=== PATIENT | male | born 1965 | race African-American/Black ===

== ENCOUNTER 2017-06-29 08:23 | Emergency (ER) | payer MEDICARE, OTHER ==
[~2017-06-29] VITALS: Ht 180.3 cm; Wt 79.4 kg
--- NOTE | 2017-06-29 08:35 | NUR ---
[id number]/ N/V STARTED 1HR AGO. PATIENT IS A/OX 4. BREATHING EVEN AND UNLABORED. NO SOB. VITALS STABLE. SAFETY AND COMFORT MEASURES IN PLACE. AWAITING MD ORDERS.
[2017-06-29] MEDS ORDERED: PANTOPRAZOLE 40 MG VIAL IV ONE (09:00)
[2017-06-29] MEDS ORDERED: MORPHINE SULFATE INJ 2 MG/ML DISP.SYRIN IV ONE (09:00)
[2017-06-29] MEDS ORDERED: IV NS 0.9% 1,000 ML BAG IV ONE (09:00)
[2017-06-29] MEDS ORDERED: ONDANSETRON HCL/PF 4 MG/2 ML VIAL IVP ONE (09:00)
[2017-06-29] MEDS ORDERED: PANTOPRAZOLE 40 MG VIAL ONE (09:05)
[2017-06-29] MEDS ORDERED: ONDANSETRON HCL/PF 4 MG/2 ML VIAL ONE (09:05)
--- NOTE | 2017-06-29 09:10 | NUR ---
NEW IV STARTED ON LAC, 18 G. BLOOD DRAWN AND SENT TO LAB.
[2017-06-29] MEDS ORDERED: HYDROMORPHONE INJ 0.5 MG/0.5 ML SYRINGE ONE (09:20)
--- NOTE | 2017-06-29 09:24 | NUR ---
PATIENT MEDICATED PER MD ORDERS.
[2017-06-29 09:25] LABS: EOSINOPHILS % (AUTO) 0.2 % (0.0-6.0); HEMATOCRIT 48 % (39-51); HEMOGLOBIN 16.4 g/dL (13.5-17.5); LYMPHOCYTES # (AUTO) 1.3 /CMM (0.8-4.8); LYMPHOCYTES % (AUTO) 16.8 % (20.0-44.0); MEAN CORPUSCULAR HEMOGLOBIN 33 PG (26.0-33.0); MEAN CORPUSCULAR HGB CONC 34 g/dl (31.0-36.0); MEAN CORPUSCULAR VOLUME 96 fL (80-96); MONOCYTES # (AUTO) 0.1 /CMM (0.1-1.30); MONOCYTES % (AUTO) 1.5 % (2.0-12.0); NEUTROPHILS # (AUTO) 6.2 /CMM (1.8-8.9); NEUTROPHILS % (AUTO) 81.5 % (43.0-81.0); PLATELET COUNT (AUTO) 220 /CMM (150-450); RDW COEFFICIENT OF VARIATION 13.4 (11.5-15.0); RED BLOOD CELL COUNT(AUTO) 4.95 MIL/uL (4.5-6.0); WHITE BLOOD COUNT (AUTO) 7.7 K/uL (4.3-11.0)
[2017-06-29] MEDS ORDERED: HYDROMORPHONE 1 MG/1 ML DISP.SYRIN IV ONE (09:30)
[2017-06-29 09:36] LABS: INR 0.96 (0.87-1.13)
[2017-06-29 09:45] LABS: BILIRUBIN,DIRECT 0.1 mg/dL (0.0-0.2); BILIRUBIN,TOTAL 0.5 mg/dL (0.2-1.0); CARBON DIOXIDE 29 mmol/L (21-32); CHLORIDE 109 mmol/L (98-107); CREATININE 1.2 mg/dL (0.6-1.3); GLUCOSE 115 mg/dL (74-106); POTASSIUM 3.6 mmol/L (3.5-5.1); SODIUM SERUM 146 mmol/L (136-145); UREA NITROGEN, BLOOD 13 mg/dL (7-18)
[2017-06-29 09:46] LABS: ALANINE AMINOTRANSFERASE 43 U/L (12-78); ALBUMIN 4.1 g/dL (3.4-5.0); ALKALINE PHOSPHATASE 125 U/L (46-116); ASPARTATE AMINOTRANSFERASE 28 U/L (15-37); LIPASE 162 U/L (73-393); TOTAL PROTEIN, SERUM 8.1 g/dL (6.4-8.2)
[2017-06-29 09:53] LABS: CALCIUM, SERUM 9.4 mg/dL (8.5-10.1)
[2017-06-29] MEDS ORDERED: IOHEXOL-300 100 ML VIAL IV ONE (09:53)
[2017-06-29] MEDS ORDERED: CT SWABBABLE VALVE TRANS SET 1 EA INFUS.SET MC ONE (09:53)
[2017-06-29] MEDS ORDERED: IV NS 0.9% 250 ML IV ONE (09:53)
--- NOTE | 2017-06-29 11:15 | NUR ---
US TECH AT BEDSIDE.
--- NOTE | 2017-06-29 12:50 | NUR ---
KISHOR SALCEDO CALLED FOR ASSISTANCE WITH TRANSPORTATION AND RESIDENTIAL
--- NOTE | 2017-06-29 13:12 | NUR ---
IV removed. Catheter intact and site benign. Pressure and 4x4 applied to site. No bleeding noted.
[2017-06-29 13:13] VITALS: BP 126/78
--- NOTE | 2017-06-29 13:13 | NUR ---
Patient discharged to home in stable condition. Written and verbal after care instructions given. Patient verbalizes understanding of instruction.
== END 2017-06-29 13:14 | disposition home or self-care (01) ==
LOC: ER 08:25
DX: K29.70 Gastritis, unspecified, without bleeding (principal); E86.0 Dehydration; I10 Essential (primary) hypertension; J44.9 Chronic obstructive pulmonary disease, unspecified; F20.0 Paranoid schizophrenia
CPT/HCPCS: 36415; 76705-TC; 80048-TC; 80076-TC; 83605-TC; 83690-TC; 85025-TC; 85730-TC; A4606; C9113; G0480; J2405; J7030; J7050; Q9967; Z7610

== ENCOUNTER 2019-09-08 11:56 | Emergency (ER) | payer MEDICARE, OTHER ==
[~2019-09-08] VITALS: Ht 175.3 cm; Wt 90.7 kg
[2019-09-08 12:47] LABS: BASOPHILS % (AUTO) 0.7 % (0.0-2.0); EOSINOPHILS % (AUTO) 1.6 % (0.0-6.0); HEMATOCRIT 44 % (39-51); HEMOGLOBIN 15.2 g/dL (13.5-17.5); LYMPHOCYTES # (AUTO) 1.7 /CMM (0.8-4.8); LYMPHOCYTES % (AUTO) 38.3 % (20.0-44.0); MEAN CORPUSCULAR HGB CONC 35 g/dl (31.0-36.0); MEAN CORPUSCULAR VOLUME 97 fL (80-96); MONOCYTES # (AUTO) 0.3 /CMM (0.1-1.30); MONOCYTES % (AUTO) 6.5 % (2.0-12.0); NEUTROPHILS # (AUTO) 2.4 /CMM (1.8-8.9); NEUTROPHILS % (AUTO) 52.9 % (43.0-81.0); PLATELET COUNT (AUTO) 194 /CMM (150-450); RED BLOOD CELL COUNT(AUTO) 4.53 MIL/uL (4.5-6.0); WHITE BLOOD COUNT (AUTO) 4.5 K/uL (4.3-11.0)
[2019-09-08 12:53] LABS: BILIRUBIN,URINE Negative (NEGATIVE); BLOOD, URINE Trace-intact Ery/uL (NEGATIVE); COLOR,URINE Yellow (YELLOW); KETONES,URINE Negative (NEGATIVE); LEUKOCYTE ESTERASE ,URINE Negative (NEGATIVE); NITRITE, URINE Negative (NEGATIVE); PROTEIN,URINE 100 mg/dl (NEGATIVE); UGLUCOSE Negative (NEGATIVE)
[2019-09-08 12:55] LABS: APPEARANCE,URINE SLIGHTLY HAZY (CLEAR)
[2019-09-08 13:00] LABS: CARBON DIOXIDE 27 mmol/L (21-32); CHLORIDE 104 mmol/L (98-107); GLUCOSE 97 mg/dL (74-106); POTASSIUM 3.5 mmol/L (3.5-5.1); SODIUM SERUM 140 mmol/L (136-145); UREA NITROGEN, BLOOD 13 mg/dL (7-18)
[2019-09-08 13:01] LABS: BACTERIA,URINE None seen /HPF (None Seen); SQUAMOUS EPITHELIAL CELL,UR Few /HPF (None Seen); WBC,URINE 0-2 /HPF (0-3)
[2019-09-08 13:13] LABS: ALANINE AMINOTRANSFERASE 40 U/L (12-78); ALBUMIN 3.9 g/dL (3.4-5.0); ALCOHOL, BLOOD < 3 mg/dL (0-0); ALKALINE PHOSPHATASE 127 U/L (46-116); ASPARTATE AMINOTRANSFERASE 21 U/L (15-37); BILIRUBIN,DIRECT 0.1 mg/dL (0.0-0.2); BILIRUBIN,TOTAL 0.4 mg/dL (0.2-1.0); SALICYLATE 4.2 mg/dL (2.8-20.0); TOTAL PROTEIN, SERUM 7.6 g/dL (6.4-8.2)
[2019-09-08 13:14] LABS: ACETAMINOPHEN 0 ug/ml (10-30)
--- NOTE | 2019-09-08 15:15 | NUR ---
CALLED [facility] FOR TRANSPORT TO [facility]. ETA 15 MINUTES.
--- NOTE | 2019-09-08 16:47 | NUR ---
RE[facility] GIV[facility]
[2019-09-08 16:49] VITALS: BP 151/82
== END 2019-09-08 16:51 ==
LOC: ER 12:06
DX: R45.1 Restlessness and agitation (principal); F20.9 Schizophrenia, unspecified; I10 Essential (primary) hypertension; J44.9 Chronic obstructive pulmonary disease, unspecified; F60.0 Paranoid personality disorder
CPT/HCPCS: 36415; 80048; 80076; 80305; 80307; 80329; 81001; 85025; 99285; G0480; 81000-TC

== ENCOUNTER 2020-07-05 16:38 | Emergency (ER) | payer MEDICARE, OTHER ==
[~2020-07-05] VITALS: Ht 175.3 cm; Wt 90.7 kg
[2020-07-05 18:03] LABS: BASOPHILS # (AUTO) 0.1 /CMM (0.0-0.2); BASOPHILS % (AUTO) 1.1 % (0.0-2.0); EOSINOPHILS % (AUTO) 0.8 % (0.0-6.0); HEMATOCRIT 44 % (39-51); HEMOGLOBIN 15.6 g/dL (13.5-17.5); LYMPHOCYTES # (AUTO) 2.1 /CMM (0.8-4.8); LYMPHOCYTES % (AUTO) 32.8 % (20.0-44.0); MEAN CORPUSCULAR HGB CONC 35 g/dl (31.0-36.0); MEAN CORPUSCULAR VOLUME 95 fL (80-96); MONOCYTES # (AUTO) 0.4 /CMM (0.1-1.30); MONOCYTES % (AUTO) 6.2 % (2.0-12.0); NEUTROPHILS # (AUTO) 3.7 /CMM (1.8-8.9); NEUTROPHILS % (AUTO) 59.1 % (43.0-81.0); PLATELET COUNT (AUTO) 193 /CMM (150-450); RED BLOOD CELL COUNT(AUTO) 4.68 MIL/uL (4.5-6.0); WHITE BLOOD COUNT (AUTO) 6.3 K/uL (4.3-11.0)
[2020-07-05 18:16] LABS: ACETAMINOPHEN < 10 ug/ml (10-30); ALANINE AMINOTRANSFERASE 63 U/L (12-78); ALBUMIN 4.3 g/dL (3.4-5.0); ALCOHOL, BLOOD < 3 mg/dL (0-0); ALKALINE PHOSPHATASE 105 U/L (46-116); ASPARTATE AMINOTRANSFERASE 31 U/L (15-37); BILIRUBIN,DIRECT 0.1 mg/dL (0.0-0.2); BILIRUBIN,TOTAL 0.4 mg/dL (0.2-1.0); CALCIUM, SERUM 9.8 mg/dL (8.5-10.1); CARBON DIOXIDE 28 mmol/L (21-32); CHLORIDE 103 mmol/L (98-107); CREATININE 1.3 mg/dL (0.6-1.3); GLUCOSE 133 mg/dL (74-106); POTASSIUM 3.7 mmol/L (3.5-5.1); SODIUM SERUM 140 mmol/L (136-145); TOTAL PROTEIN, SERUM 8.2 g/dL (6.4-8.2); UREA NITROGEN, BLOOD 10 mg/dL (7-18)
--- NOTE | 2020-07-05 19:13 | NUR ---
TOOK OVER PT CARE. PT AAOX4. AMBULATORY WITH STEADY GAIT. PT REPORTS HEARING VOICES TELLING HIM TO JUMP IN FRONT OF TRAFFIC AND REQUESTING TO BE TRANSFERED TO [facility]. NO ACUTE DISTRESS NOTED. URINE COLLECTED, SENT TO LAB. COVID SWABBED, SENT TO LAB.
[2020-07-05 19:26] LABS: BILIRUBIN,URINE Negative (NEGATIVE); COLOR,URINE YELLOW (YELLOW); LEUKOCYTE ESTERASE ,URINE Negative (NEGATIVE); NITRITE, URINE Negative (NEGATIVE); PROTEIN,URINE Negative (NEGATIVE); UGLUCOSE Negative (NEGATIVE); UROBILINOGEN,URINE 0.2 EU/dL (0.2)
[2020-07-05 19:36] LABS: BACTERIA,URINE Rare /HPF (None Seen); MUCUS,URINE Few /LPF (None Seen); SQUAMOUS EPITHELIAL CELL,UR 0-2 /HPF (None Seen); WBC,URINE 0-2 /HPF (0-3)
--- NOTE | 2020-07-05 20:00 | NUR ---
FACESHEET AND CLINICAL FAXED TO [facility] INTAKE FOR VOLUNTARY PSYCH ADMISSION.
--- NOTE | 2020-07-05 21:56 | NUR ---
TRANSFER INFORMATION: PT ACCEPTED AT [facility] JABARI JONES ACCEPTING MD SHORE PT WILL GO TO UNIT 2 PHONE # FOR REPORT
--- NOTE | 2020-07-05 22:00 | NUR ---
REPORT CALLED TO MINH MARIE.
--- NOTE | 2020-07-05 22:32 | NUR ---
CALL THE CAR, WILL CALL BACK DAVID SIMMONS #[phone]
--- NOTE | 2020-07-06 00:09 | NUR ---
[facility] ETA 35 MINUTES
--- NOTE | 2020-07-06 01:07 | NUR ---
TRANSPORT AT BEDSIDE REPORT GIVEN TO EMT.
[2020-07-06 01:08] VITALS: BP 149/77
== END 2020-07-06 01:09 ==
LOC: ER 16:46
DX: R45.851 Suicidal ideations (principal); F20.9 Schizophrenia, unspecified; Z20.822 Contact with and (suspected) exposure to COVID-19
CPT/HCPCS: 36415; 80048-TC; 80076-TC; 81001; 85025-TC; C9803; G0480

== ENCOUNTER 2020-07-23 13:13 | Emergency (ER) | payer MEDICARE, OTHER ==
[~2020-07-23] VITALS: Ht 175.3 cm; Wt 90.7 kg
--- NOTE | 2020-07-23 13:35 | NUR ---
CAME HERE FOR HEARING VOICES TELLING HIM TO RUN INTO TRAFFIC,WANT TO BE [facility], TO ER BED 13, HOOKED TO MONITOR, CHANGED TO HOSP GOWN, SUICIDAL PRECAUTIONS APPLIED, SITTER AT BEDSIDE FOR SAFETY
--- NOTE | 2020-07-23 14:04 | NUR ---
URINE SAMPLE COLLECTED AND SENT TO LAB
--- NOTE | 2020-07-23 14:20 | NUR ---
DR PALOMO AT BEDSIDE
[2020-07-23 14:56] LABS: BASOPHILS % (AUTO) 0.8 % (0.0-2.0); HEMATOCRIT 45 % (39-51); HEMOGLOBIN 15.3 g/dL (13.5-17.5); LYMPHOCYTES # (AUTO) 2.3 /CMM (0.8-4.8); LYMPHOCYTES % (AUTO) 38.9 % (20.0-44.0); MEAN CORPUSCULAR HGB CONC 34 g/dl (31.0-36.0); MEAN CORPUSCULAR VOLUME 96 fL (80-96); MONOCYTES # (AUTO) 0.3 /CMM (0.1-1.30); MONOCYTES % (AUTO) 5.9 % (2.0-12.0); NEUTROPHILS % (AUTO) 52.4 % (43.0-81.0); PLATELET COUNT (AUTO) 226 /CMM (150-450); RED BLOOD CELL COUNT(AUTO) 4.68 MIL/uL (4.5-6.0); WHITE BLOOD COUNT (AUTO) 5.8 K/uL (4.3-11.0)
[2020-07-23 14:57] LABS: BILIRUBIN,URINE NEGATIVE (NEGATIVE); COLOR,URINE YELLOW (YELLOW); LEUKOCYTE ESTERASE ,URINE NEGATIVE (NEGATIVE); NITRITE, URINE NEGATIVE (NEGATIVE); PROTEIN,URINE NEGATIVE (NEGATIVE); UGLUCOSE NEGATIVE (NEGATIVE); UROBILINOGEN,URINE 0.2 EU/dL (0.2)
[2020-07-23 15:09] LABS: CALCIUM, SERUM 9.4 mg/dL (8.5-10.1); CARBON DIOXIDE 28 mmol/L (21-32); CHLORIDE 105 mmol/L (98-107); CREATININE 1.2 mg/dL (0.6-1.3); GLUCOSE 126 mg/dL (74-106); POTASSIUM 4.1 mmol/L (3.5-5.1); SODIUM SERUM 142 mmol/L (136-145); UREA NITROGEN, BLOOD 15 mg/dL (7-18)
[2020-07-23 15:14] LABS: ALANINE AMINOTRANSFERASE 45 U/L (12-78); ALCOHOL, BLOOD < 3 mg/dL (0-0); ALKALINE PHOSPHATASE 96 U/L (46-116); ASPARTATE AMINOTRANSFERASE 23 U/L (15-37); BILIRUBIN,DIRECT 0.1 mg/dL (0.0-0.2); BILIRUBIN,TOTAL 0.3 mg/dL (0.2-1.0); TOTAL PROTEIN, SERUM 7.6 g/dL (6.4-8.2)
[2020-07-23 15:17] LABS: ACETAMINOPHEN < 0 ug/ml (10-30)
--- NOTE | 2020-07-23 15:43 | NUR ---
SW CONTACTED ABOUT PT GOING TO [facility].
--- NOTE | 2020-07-23 16:00 | NUR ---
rapid covid test done and sent to lab
--- NOTE | 2020-07-23 16:20 | NUR ---
SS Consult: SS Consult requested for SI w/plan. The pt. is a 54-year old Black male seeking medical attention for SI with plan to "run into traffic", per EMR. MARIANNE met with pt. bedside. The pt. is alert & oriented x 4 and makes appropriate eye contact. The pt. appears unkempt. The pt. has low speech. The pt. stated he has been experiencing auditory hallucinations. Per pt. the commanding voices tell him to kill himself. MARIANNE assessed pt.s Hx. of mental health. Pt. stated he is currently on Risperdal aNd could not provide any diagnosis. Pt. stated he goes to different mental health clinics to get his prescriptions. The pt. stated he has been experiencing homelessness for about 1 year. Pt. is ambulatory and able to plan for care. Per pt. he sleeps on the streets could not specify which cross streets. SW assessed pt.s support system. Pt. unable to provide any family or friend contact information. Pt. stated he is not involved with his family. Per pt. he receives SSDI & SSI. Patient denies drug & alcohol use. Pt. stated, I only smoke cigarettes. 2 packs per day. Pt. denies HI & visual hallucinations. SW offered patient voluntary psychiatric hospitalization for stabilization. Patient is agreeable. Plan: MARIANNE notified Jerry at [facility] [[address] [place], [place] [id number] ] that male bed is required preferably in [place]. ED nursing staff to fax clinicals to [phone] when labs results are in. Pt. signed homeless waiver and it was placed in pt.s chart. MARIANNE provided pt. with the following homeless resources and pt. accepted them: Substance Abuse resources provided included: [facility] Substance Abuse Self-Helpline (SAS) ; CRI -HELP [address] [facility]. [place] [address] ; [facility] [address] [facility] [address] ; [facility] Rehabilitation [facility] [address] [facility] [address] ; [facility] [address] [facility] [address] ; [facility] Treatment [facility] [address] Paganmaxim [facility] [address] ; [facility] [address] [facility] [id number] ; [facility] Substance Abuse Helpline([facility] ; [facility] ; [facility] [place]; [facility] Ronan; Cri-Help [place]; [facility] Earl Latashamaxim; [facility]; Orinda Mozier [place]; [facility]; [facility], [facility]. [place]; Alcoholics Anonymous -SFV; Ws-Zchf-[place] ; Marijuana Anonymous -SFV; Narcotics Anonymous www.na.org; Year-round shelters: [place] [address] [place] [address] ; [facility] [place] [address] [place] [address]; [place] [facility] [id number] [facility] [id number] Winter Shelters: Suman Dinh Provider: [facility] [place] Address: [address] [place], [address] # of Beds: 47 Population Served: [facility] 6 | [facility] Mica Foy [place] Provider: [facility] Address: [address] [place] [address], [address] # of Beds: 66 Population Served: Abilio Sahniise Allegra Provider: First to Serve Address: [address] [place] [address], [address] # of Beds: 56 Population Served: [facility] [place] Provider: /[facility]. [facility] Address: [address] [facility], [address] # of Beds: 49 Population Served: Coed SPA 8 | [facility] Provider: First to Serve Address: [address] [facility]. [place], [address] # of Beds: 37 Population Served: Coed Hygiene: [facility]: [address] [place] ; [facility] [address] [facility] ; [facility] 6[address] [facility] . Food Resources: [place] [facility] at [facility]- [address] [facility]; Meet Each Need with Dignity ([facility]) [address] [facility]; [facility] Food Pantry [address] [facility]; [facility] [address] [facility]. Mental Health resources provided: [facility] [address] [place], [place] [address] ; [facility] Mental Health [employer] [address] [facility] [address], [place], [place] [id number] ; Ceci Brito [facility] [address] Ceci Brit[address] [place], [place] [id number] ; [facility] [address] [place], [place] [id number] Healthcare Clinics: [facility] [address] [facility], [address] [place]. [place] ; [facility] Healthcare Clinic [address] [facility] [address] [place] [address]; [facility] [address] [facility]. [place] [id number] [phone]
--- NOTE | 2020-07-23 16:22 | NUR ---
SW notified NurseMargot in ED to fax clinicals to [facility] [[facility] [place] [address]] [phone] ATTN:Jerry when labs results are in.
--- NOTE | 2020-07-23 17:35 | NUR ---
negative COVID antigen results
--- NOTE | 2020-07-23 18:02 | NUR ---
Dinner provided. tolerating PO well.
--- NOTE | 2020-07-23 19:01 | NUR ---
patient in bed awake, hooked to monitor. VSS. sitter at bedside for safety. will continue to monitor
--- NOTE | 2020-07-23 19:23 | NUR ---
report given to Vicente RAND for saul
--- NOTE | 2020-07-23 19:24 | NUR ---
new set of clinicals sent to [facility] Intake [phone] c/o Veronica
--- NOTE | 2020-07-23 19:43 | NUR ---
REC'D A CALL FROM ROMEL AT [facility] INTAKE, PT WAS JUST DISCHARGED FROM [facility] TODAY AND CAN NOT GO BACK TO THE FACILITY UNTIL ANOTHER 3 DAYS. NO BED AVAILABLE AT [facility] OR [facility] PER ROMEL
--- NOTE | 2020-07-23 21:02 | NUR ---
PT DENYING SI/HI. PT NO LONGER WISHES TO STAY IN ER. MD NOTIFIED. Patient discharged to home in stable condition. Written and verbal after care instructions given. Patient verbalizes understanding of instruction.
[2020-07-24 06:06] VITALS: BP 125/74
== END 2020-07-24 06:06 | disposition home or self-care (01) ==
LOC: ER 13:13
DX: R45.851 Suicidal ideations (principal); F20.9 Schizophrenia, unspecified; Z20.822 Contact with and (suspected) exposure to COVID-19
CPT/HCPCS: 36415; 80048-TC; 80076-TC; 85025-TC; C9803; G0480

== ENCOUNTER 2021-01-11 17:36 | Emergency (ER) | payer MEDICARE, OTHER ==
[~2021-01-11] VITALS: Ht 175.3 cm; Wt 83.9 kg
--- NOTE | 2021-01-11 17:36 | NUR ---
PT BIB SELF C/O DEPRESSION AND REQUESTING VOLUNTARY ADMISSION TO PENDING SALE TO [facility]. PT IS AAOX4, NOT IN RESPIRATORY DISTRESS, V/S STABLE, KEPT RESTED AND COMFORTABLE. WILL CONTINUE TO MONITOR.
--- NOTE | 2021-01-11 18:00 | NUR ---
ER PHLEB AT BEDSIDE FOR BLOOD DRAW.
[2021-01-11 18:09] LABS: BASOPHILS % (AUTO) 0.6 % (0.0-2.0); EOSINOPHILS % (AUTO) 1.2 % (0.0-6.0); HEMATOCRIT 45 % (39-51); HEMOGLOBIN 15.6 g/dL (13.5-17.5); LYMPHOCYTES # (AUTO) 2.1 K/uL (0.8-4.8); LYMPHOCYTES % (AUTO) 36.2 % (20.0-44.0); MEAN CORPUSCULAR HGB CONC 35 g/dl (31.0-36.0); MEAN CORPUSCULAR VOLUME 95 fL (80-96); MONOCYTES # (AUTO) 0.5 K/uL (0.1-1.30); MONOCYTES % (AUTO) 7.9 % (2.0-12.0); NEUTROPHILS # (AUTO) 3.2 K/uL (1.8-8.9); NEUTROPHILS % (AUTO) 54.1 % (43.0-81.0); PLATELET COUNT (AUTO) 195 K/uL (150-450); RED BLOOD CELL COUNT(AUTO) 4.69 MIL/uL (4.5-6.0); WHITE BLOOD COUNT (AUTO) 5.8 K/uL (4.3-11.0)
[2021-01-11 18:27] LABS: ALANINE AMINOTRANSFERASE 40 U/L (12-78); ALBUMIN 4.3 g/dL (3.4-5.0); ALCOHOL, BLOOD < 3 mg/dL (0-0); ALKALINE PHOSPHATASE 116 U/L (46-116); ASPARTATE AMINOTRANSFERASE 22 U/L (15-37); BILIRUBIN,DIRECT 0.2 mg/dL (0.0-0.2); BILIRUBIN,TOTAL 0.8 mg/dL (0.2-1.0); CALCIUM, SERUM 8.9 mg/dL (8.5-10.1); CARBON DIOXIDE 28 mmol/L (21-32); CHLORIDE 106 mmol/L (98-107); CREATININE 1.2 mg/dL (0.6-1.3); GLUCOSE 109 mg/dL (74-106); POTASSIUM 3.9 mmol/L (3.5-5.1); SODIUM SERUM 143 mmol/L (136-145); TOTAL PROTEIN, SERUM 7.7 g/dL (6.4-8.2); UREA NITROGEN, BLOOD 11 mg/dL (7-18)
[2021-01-11 18:30] LABS: ACETAMINOPHEN < 2 ug/ml (10-30)
--- NOTE | 2021-01-11 18:58 | NUR ---
URINE SPECIMEN COLLECTED AND SENT TO LAB.
[2021-01-11 19:06] LABS: BILIRUBIN,URINE NEGATIVE (NEGATIVE); COLOR,URINE YELLOW (YELLOW); LEUKOCYTE ESTERASE ,URINE NEGATIVE (NEGATIVE); NITRITE, URINE NEGATIVE (NEGATIVE); PH,URINE 7.5 (5.0-8.0); PROTEIN,URINE NEGATIVE (NEGATIVE); UGLUCOSE NEGATIVE (NEGATIVE); UROBILINOGEN,URINE 0.2 EU/dL (0.2)
[2021-01-11 19:19] LABS: BACTERIA,URINE RARE /HPF (None Seen); SQUAMOUS EPITHELIAL CELL,UR 0-2 /HPF (None Seen); WBC,URINE 0-2 /HPF (0-3)
--- NOTE | 2021-01-11 21:16 | NUR ---
Xi ayala in [facility] - 01/11/21 at 2124 by LAURA MARK RAND SUP STATES NO STAFF/BED AVAILABLE TONIGHT, PLEASE CALL IN THE MORNING FOR UPDATED STATUS
--- NOTE | 2021-01-11 21:24 | NUR ---
MARK [facility]ASHA [employer] SUP STATES NO STAFF/BED AVAILABLE TONIGHT, PLEASE CALL IN THE MORNING FOR UPDATED STATUS, WILL PLACE PT ON PENDING LIST
--- NOTE | 2021-01-12 07:37 | NUR ---
PT AAOX4, NOT IN RESPIRATORY DISTRESS, V/S STABLE, KEPT RESTED AND COMFORTABLE. AWAITING UPDATE FROM [facility] FOR BED AVAILABILITY FOR VOLUNTARY ADMISSION.
--- NOTE | 2021-01-12 07:48 | NUR ---
accepted at [facility] under dr jauregui number for report [phone] ext [phone]
--- NOTE | 2021-01-12 07:50 | NUR ---
TRANSPORT [facility] CALLED ETA IS 0915 PER ELLE.
--- NOTE | 2021-01-12 07:56 | NUR ---
REPORT GIVEN TO DEYA DUPREE RE PT TRANSFER
--- NOTE | 2021-01-12 08:41 | NUR ---
CHANGED MARGARINE MAKER TIME TO 1000 WHEN BED IS READY.
--- NOTE | 2021-01-12 10:14 | NUR ---
REPORT GIVEN TO EMS FOR PT TRANSFER TO [facility].
[2021-01-12 10:15] VITALS: BP 127/71
== END 2021-01-12 10:16 ==
LOC: ER 17:42
DX: F20.9 Schizophrenia, unspecified (principal); R45.851 Suicidal ideations; F17.210 Nicotine dependence, cigarettes, uncomplicated; Z20.822 Contact with and (suspected) exposure to COVID-19
CPT/HCPCS: 36415; 80048-TC; 80076-TC; 81001; 85025-TC; C9803; G0480

== ENCOUNTER 2021-02-07 20:52 | Emergency (ER) | payer MEDICARE, OTHER ==
[~2021-02-07] VITALS: Ht 175.3 cm; Wt 83.9 kg
--- NOTE | 2021-02-07 20:57 | NUR ---
PT AAOX4. BIBSELF C/O HALLUCINATIONS AND SI WITH PLAN TO OD ON PILLS. PLACED IN BED 15, IN GOWN, ON MONITOR, AND PULSE OX. SITTER AT BEDSIDE. AWAITING ER MD FOR EVAL AND ORDERS.
--- NOTE | 2021-02-07 21:41 | NUR ---
COVID SWAB COLLECTED AND SENT TO LAB
[2021-02-07 21:46] LABS: BASOPHILS % (AUTO) 0.6 % (0.0-2.0); EOSINOPHILS % (AUTO) 1.3 % (0.0-6.0); HEMATOCRIT 46 % (39-51); HEMOGLOBIN 15.5 g/dL (13.5-17.5); LYMPHOCYTES # (AUTO) 2.4 K/uL (0.8-4.8); LYMPHOCYTES % (AUTO) 41.4 % (20.0-44.0); MEAN CORPUSCULAR HGB CONC 34 g/dl (31.0-36.0); MEAN CORPUSCULAR VOLUME 97 fL (80-96); MONOCYTES # (AUTO) 0.4 K/uL (0.1-1.30); MONOCYTES % (AUTO) 6.7 % (2.0-12.0); NEUTROPHILS # (AUTO) 2.9 K/uL (1.8-8.9); PLATELET COUNT (AUTO) 197 K/uL (150-450); RED BLOOD CELL COUNT(AUTO) 4.75 MIL/uL (4.5-6.0); WHITE BLOOD COUNT (AUTO) 5.8 K/uL (4.3-11.0)
[2021-02-07 21:51] LABS: BILIRUBIN,URINE NEGATIVE (NEGATIVE); COLOR,URINE YELLOW (YELLOW); LEUKOCYTE ESTERASE ,URINE NEGATIVE (NEGATIVE); NITRITE, URINE NEGATIVE (NEGATIVE); PH,URINE 6.5 (5.0-8.0); PROTEIN,URINE NEGATIVE (NEGATIVE); UGLUCOSE NEGATIVE (NEGATIVE); UROBILINOGEN,URINE 0.2 EU/dL (0.2)
[2021-02-07 22:17] LABS: BACTERIA,URINE None seen /HPF (None Seen); SQUAMOUS EPITHELIAL CELL,UR 0-2 /HPF (None Seen); WBC,URINE 0-2 /HPF (0-3)
[2021-02-07 22:46] LABS: ALANINE AMINOTRANSFERASE 52 U/L (12-78); ALBUMIN 4.1 g/dL (3.4-5.0); ALKALINE PHOSPHATASE 108 U/L (46-116); ASPARTATE AMINOTRANSFERASE 22 U/L (15-37); BILIRUBIN,DIRECT 0.1 mg/dL (0.0-0.2); BILIRUBIN,TOTAL 0.5 mg/dL (0.2-1.0); CALCIUM, SERUM 8.7 mg/dL (8.5-10.1); CARBON DIOXIDE 26 mmol/L (21-32); CHLORIDE 103 mmol/L (98-107); GLUCOSE 89 mg/dL (74-106); POTASSIUM 3.6 mmol/L (3.5-5.1); SODIUM SERUM 141 mmol/L (136-145); TOTAL PROTEIN, SERUM 7.8 g/dL (6.4-8.2); UREA NITROGEN, BLOOD 13 mg/dL (7-18)
[2021-02-07 22:47] LABS: ACETAMINOPHEN 0 ug/ml (10-30)
[2021-02-07 22:56] LABS: ALCOHOL, BLOOD < 3 mg/dL (0-0)
--- NOTE | 2021-02-07 23:14 | NUR ---
FACESHEET AND CLINICALS FAXE TO [facility].
--- NOTE | 2021-02-08 00:28 | NUR ---
pt sitting in bed watching tv, attached to monitor, vss
--- NOTE | 2021-02-08 03:15 | NUR ---
pt sitting quietly in bed,attached to monitor and pox vss
--- NOTE | 2021-02-08 08:00 | NUR ---
THE PATIENT IS SLEEPING IN BED. EASILY RESPONSIVE TO VERBAL STIMULI. RESPIRATION REGUALR AND UNLABORED. WILL CONTINUE TO MONITOR THE PATIENT.
--- NOTE | 2021-02-08 08:35 | NUR ---
THE PATIENT IS ALERT AND ORIENTED X4. DENIES PAIN. BREATHING EVEN AND UNLABORED. DENIES SOB. THE PATIENT IS IN ROOM AIR. THE PATIENT HAS STABLE GAIT. BREAKFAST IS SERVED. THE PATIENT TOLERATES PROVIDED MEAL WELL. WILL CONTINUE TO MONITOR THE PATIENT.
--- NOTE | 2021-02-08 12:36 | NUR ---
CALLED INTAKE NO BEDS YET. WILL CALL US BACK.
--- NOTE | 2021-02-08 15:27 | NUR ---
patient accepted at [facility] number for report [phone] ext [phone]
[2021-02-08 15:28] VITALS: BP 133/83
--- NOTE | 2021-02-08 15:33 | NUR ---
CALLED [facility] FOR TRANSPORT ETA 60 MINS.
--- NOTE | 2021-02-08 15:42 | NUR ---
report given to Marietta RAND for saul.
--- NOTE | 2021-02-08 16:05 | NUR ---
REPORT GIVEN TO EMS FOR PT TRANSFER TO [facility].
== END 2021-02-08 16:21 ==
LOC: ER 20:56
DX: R44.3 Hallucinations, unspecified (principal); R45.851 Suicidal ideations; Z20.822 Contact with and (suspected) exposure to COVID-19; Z59.0 Homelessness; F19.10 Other psychoactive substance abuse, uncomplicated; F20.9 Schizophrenia, unspecified
CPT/HCPCS: 36415; 80048-TC; 80076-TC; 81001; 85025-TC; C9803; G0480

== ENCOUNTER 2021-03-31 22:55 | Emergency (ER) | payer MEDICARE, OTHER ==
[~2021-03-31] VITALS: Ht 175.3 cm; Wt 90.7 kg
--- NOTE | 2021-03-31 23:46 | NUR ---
PT AAOX4. BIBS FOR C/O SI, REQUESTING VOLUNTARY PSYCH ADMISSION. PLACED IN BED, ON MONITOR, AND PULSE OX. ER MD AT BEDSIDE, AWATING ORDERS.
[2021-04-01 00:09] LABS: BASOPHILS # (AUTO) 0.3 K/uL (0.0-0.2); BASOPHILS % (AUTO) 4.3 % (0.0-2.0); EOSINOPHILS % (AUTO) 1.5 % (0.0-6.0); HEMATOCRIT 46 % (39-51); LYMPHOCYTES # (AUTO) 1.7 K/uL (0.8-4.8); LYMPHOCYTES % (AUTO) 21.6 % (20.0-44.0); MEAN CORPUSCULAR HGB CONC 35 g/dl (31.0-36.0); MEAN CORPUSCULAR VOLUME 96 fL (80-96); MONOCYTES # (AUTO) 0.4 K/uL (0.1-1.30); MONOCYTES % (AUTO) 5.2 % (2.0-12.0); NEUTROPHILS # (AUTO) 5.2 K/uL (1.8-8.9); NEUTROPHILS % (AUTO) 67.4 % (43.0-81.0); PLATELET COUNT (AUTO) 211 K/uL (150-450); RED BLOOD CELL COUNT(AUTO) 4.81 MIL/uL (4.5-6.0); WHITE BLOOD COUNT (AUTO) 7.7 K/uL (4.3-11.0)
[2021-04-01 00:16] LABS: BILIRUBIN,URINE Negative (NEGATIVE); COLOR,URINE YELLOW (YELLOW); LEUKOCYTE ESTERASE ,URINE Negative (NEGATIVE); NITRITE, URINE Negative (NEGATIVE); PROTEIN,URINE Negative (NEGATIVE); UGLUCOSE Negative (NEGATIVE); UROBILINOGEN,URINE 0.2 EU/dL (0.2)
[2021-04-01 00:22] LABS: BACTERIA,URINE Rare /HPF (None Seen); SQUAMOUS EPITHELIAL CELL,UR Few /HPF (None Seen); WBC,URINE NONE SEEN /HPF (0-3)
[2021-04-01 00:36] LABS: ALANINE AMINOTRANSFERASE 75 U/L (12-78); ALBUMIN 4.4 g/dL (3.4-5.0); ALKALINE PHOSPHATASE 116 U/L (46-116); ASPARTATE AMINOTRANSFERASE 30 U/L (15-37); BILIRUBIN,DIRECT 0.1 mg/dL (0.0-0.2); BILIRUBIN,TOTAL 0.3 mg/dL (0.2-1.0); CALCIUM, SERUM 9.3 mg/dL (8.5-10.1); CARBON DIOXIDE 30 mmol/L (21-32); CHLORIDE 105 mmol/L (98-107); CREATININE 1.2 mg/dL (0.6-1.3); GLUCOSE 132 mg/dL (74-106); POTASSIUM 3.8 mmol/L (3.5-5.1); SODIUM SERUM 141 mmol/L (136-145); TOTAL PROTEIN, SERUM 8.3 g/dL (6.4-8.2); UREA NITROGEN, BLOOD 21 mg/dL (7-18)
[2021-04-01 01:02] LABS: ACETAMINOPHEN 0 ug/ml (10-30); ALCOHOL, BLOOD < 3 mg/dL (0-0)
[2021-04-01] MEDS: hydrALAZINE HCL 10 MG TABLET PO ONE (03:05)
[2021-04-01] MEDS: hydrALAZINE HCL 10 MG TABLET ONE (03:05)
--- NOTE | 2021-04-01 04:06 | NUR ---
FACESHEET AND CLINICALS FAXED TO [facility].
[2021-04-01] MEDS ORDERED: HYDROCHLOROTHIAZIDE 25 MG TABLET ONE (05:55)
[2021-04-01] MEDS: HYDROCHLOROTHIAZIDE 25 MG TABLET PO ONE (05:59)
--- NOTE | 2021-04-01 08:50 | NUR ---
FAXED NEW SET OF VITALS TO [facility]
[2021-04-01 11:03] VITALS: BP 131/83
--- NOTE | 2021-04-01 11:41 | NUR ---
Received a call from Faviola from [facility], patient is accepted under Dr. Bajwa number for report [phone] unit 2
--- NOTE | 2021-04-01 11:50 | NUR ---
CALLED [facility] AND SET UP BLS TRANSPORT TO [facility]. ETA [phone]
--- NOTE | 2021-04-01 11:52 | NUR ---
REPORT GIVEN TO TUNDEAL
== END 2021-04-01 13:00 ==
LOC: ER 23:05
DX: F20.9 Schizophrenia, unspecified (principal); I10 Essential (primary) hypertension; R31.29 Other microscopic hematuria; Z59.00 Homelessness unspecified; Z20.822 Contact with and (suspected) exposure to COVID-19
CPT/HCPCS: 36415; 80048-TC; 80076-TC; 81001; 85025-TC; C9803; G0480

== ENCOUNTER 2021-04-12 15:30 | Emergency (ER) | payer MEDICARE, OTHER ==
[~2021-04-12] VITALS: Ht 175.3 cm; Wt 83.9 kg
--- NOTE | 2021-04-12 15:30 | NUR ---
PT BIB SELF C/O HEARING VOICES AND FEELING SUICIDAL. NO PLAN. REQUESTING VOL PSYCH ADMIT. PT IS AAOX4, NOT IN RESPIRATORY DISTRESS, V/S STABLE, KEPT RESTED AND COMFORTABLE. WILL CONTINUE TO MONITOR.
--- NOTE | 2021-04-12 15:55 | NUR ---
URINE SPECIMEN COLLECTED AND SENT TO LAB.
--- NOTE | 2021-04-12 16:05 | NUR ---
ER PHLEB AT BEDSIDE FOR BLOOD DRAW.
[2021-04-12 16:37] LABS: BASOPHILS % (AUTO) 0.5 % (0.0-2.0); EOSINOPHILS % (AUTO) 1.7 % (0.0-6.0); HEMATOCRIT 45 % (39-51); HEMOGLOBIN 15.4 g/dL (13.5-17.5); LYMPHOCYTES # (AUTO) 2.4 K/uL (0.8-4.8); LYMPHOCYTES % (AUTO) 43.2 % (20.0-44.0); MEAN CORPUSCULAR HGB CONC 34 g/dl (31.0-36.0); MEAN CORPUSCULAR VOLUME 96 fL (80-96); MONOCYTES # (AUTO) 0.4 K/uL (0.1-1.30); MONOCYTES % (AUTO) 6.6 % (2.0-12.0); NEUTROPHILS # (AUTO) 2.6 K/uL (1.8-8.9); PLATELET COUNT (AUTO) 210 K/uL (150-450); RED BLOOD CELL COUNT(AUTO) 4.67 MIL/uL (4.5-6.0); WHITE BLOOD COUNT (AUTO) 5.5 K/uL (4.3-11.0)
[2021-04-12 16:40] LABS: BILIRUBIN,URINE NEGATIVE (NEGATIVE); COLOR,URINE YELLOW (YELLOW); LEUKOCYTE ESTERASE ,URINE NEGATIVE (NEGATIVE); NITRITE, URINE NEGATIVE (NEGATIVE); PROTEIN,URINE NEGATIVE (NEGATIVE); UGLUCOSE NEGATIVE (NEGATIVE)
[2021-04-12 16:47] LABS: CARBON DIOXIDE 26 mmol/L (21-32); CHLORIDE 104 mmol/L (98-107); CREATININE 1.2 mg/dL (0.6-1.3); GLUCOSE 114 mg/dL (74-106); POTASSIUM 3.4 mmol/L (3.5-5.1); SODIUM SERUM 140 mmol/L (136-145); UREA NITROGEN, BLOOD 19 mg/dL (7-18)
[2021-04-12 16:53] LABS: BACTERIA,URINE Few /HPF (None Seen); SQUAMOUS EPITHELIAL CELL,UR Few /HPF (None Seen); WBC,URINE 0-2 /HPF (0-3)
[2021-04-12 17:04] LABS: ALANINE AMINOTRANSFERASE 47 U/L (12-78); ALKALINE PHOSPHATASE 114 U/L (46-116); ASPARTATE AMINOTRANSFERASE 31 U/L (15-37); BILIRUBIN,DIRECT 0.1 mg/dL (0.0-0.2); BILIRUBIN,TOTAL 0.4 mg/dL (0.2-1.0); TOTAL PROTEIN, SERUM 7.5 g/dL (6.4-8.2)
[2021-04-12 17:05] LABS: ACETAMINOPHEN < 0 ug/ml (10-30); ALCOHOL, BLOOD < 3 mg/dL (0-0)
--- NOTE | 2021-04-12 17:57 | NUR ---
FAXED CLINICALS TO [facility].
--- NOTE | 2021-04-12 21:26 | NUR ---
PT ACCEPTED AT [facility] UNDER THE CARE OF DR. CORBIN. CALL [phone] FOR REPORT AND ROOM ASSIGNMENT. SEND PT AFTER 3108.
--- NOTE | 2021-04-12 21:31 | NUR ---
SPOKE WITH DAWOOD FROM [facility] AND SET UP BLS TRANSPORT TO [facility]. ETA IS 0459
[2021-04-12 23:00] VITALS: BP 149/92
--- NOTE | 2021-04-12 23:39 | NUR ---
REPORT GIVEN TO GIORGI MARIE FOR SHAWANDA
--- NOTE | 2021-04-12 23:40 | NUR ---
[id number] AT BEDSIDE FOR PT [facility]SP[facility] FOR VOLUNTARY PSYCH ADMISSION. PT IS IN STABLE CONDITION FOR TRANSPORT. PT IS IN STABLE CONDITION FOR TRANSPORT.
--- NOTE | 2021-04-12 23:44 | NUR ---
PT LEFT ON MAYNOR
== END 2021-04-12 23:45 ==
LOC: ER 15:32
DX: R45.851 Suicidal ideations (principal); Z59.00 Homelessness unspecified; F25.9 Schizoaffective disorder, unspecified; Z20.822 Contact with and (suspected) exposure to COVID-19
CPT/HCPCS: 36415; 80048-TC; 80076-TC; 81001; 85025-TC; C9803; G0480

== ENCOUNTER 2021-04-29 23:45 | Emergency (ER) | payer MEDICARE, OTHER ==
[~2021-04-29] VITALS: Ht 175.3 cm; Wt 81.6 kg
--- NOTE | 2021-04-30 02:00 | NUR ---
PATIENT BIBS C/O HAVING S/I WITH NO PLAN. DENIES H/I. ALERT AND ORIENTED X3. AMBULATORY WITH NON LABORED BREATHING. PLACED IN BED 14 ON A MONITOR AND POX. COLLECTED ALL BELONGINGS AND PLACED IN A GOWN.
[2021-04-30 02:21] LABS: BILIRUBIN,URINE Negative (NEGATIVE); COLOR,URINE YELLOW (YELLOW); LEUKOCYTE ESTERASE ,URINE Negative (NEGATIVE); NITRITE, URINE Negative (NEGATIVE); PH,URINE 6.5 (5.0-8.0); PROTEIN,URINE Negative (NEGATIVE); UGLUCOSE Negative (NEGATIVE); UROBILINOGEN,URINE 0.2 EU/dL (0.2)
[2021-04-30 02:26] LABS: CARBON DIOXIDE 30 mmol/L (21-32); CHLORIDE 103 mmol/L (98-107); CREATININE 1.1 mg/dL (0.6-1.3); GLUCOSE 152 mg/dL (74-106); POTASSIUM 3.6 mmol/L (3.5-5.1); SODIUM SERUM 140 mmol/L (136-145); UREA NITROGEN, BLOOD 9 mg/dL (7-18)
[2021-04-30 02:27] LABS: BASOPHILS % (AUTO) 0.7 % (0.0-2.0); EOSINOPHILS % (AUTO) 1.3 % (0.0-6.0); HEMATOCRIT 46 % (39-51); LYMPHOCYTES # (AUTO) 1.7 K/uL (0.8-4.8); LYMPHOCYTES % (AUTO) 33.9 % (20.0-44.0); MEAN CORPUSCULAR HGB CONC 35 g/dl (31.0-36.0); MEAN CORPUSCULAR VOLUME 96 fL (80-96); MONOCYTES # (AUTO) 0.4 K/uL (0.1-1.30); MONOCYTES % (AUTO) 8.7 % (2.0-12.0); NEUTROPHILS # (AUTO) 2.8 K/uL (1.8-8.9); NEUTROPHILS % (AUTO) 55.4 % (43.0-81.0); PLATELET COUNT (AUTO) 195 K/uL (150-450); WHITE BLOOD COUNT (AUTO) 5.1 K/uL (4.3-11.0)
[2021-04-30 02:31] LABS: ALANINE AMINOTRANSFERASE 76 U/L (12-78); ALBUMIN 4.2 g/dL (3.4-5.0); ALKALINE PHOSPHATASE 116 U/L (46-116); ASPARTATE AMINOTRANSFERASE 34 U/L (15-37); BILIRUBIN,DIRECT 0.1 mg/dL (0.0-0.2); BILIRUBIN,TOTAL 0.4 mg/dL (0.2-1.0)
[2021-04-30 02:36] LABS: ACETAMINOPHEN 0 ug/ml (10-30); ALCOHOL, BLOOD < 3 mg/dL (0-0)
[2021-04-30 02:39] LABS: BACTERIA,URINE Rare /HPF (None Seen); SQUAMOUS EPITHELIAL CELL,UR None Seen /HPF (None Seen); WBC,URINE 0-2 /HPF (0-3)
--- NOTE | 2021-04-30 03:47 | NUR ---
FACEHSEET AND CLINICALS FAXED TO [facility].
--- NOTE | 2021-04-30 05:46 | NUR ---
ACCEPTED INTO [facility] PER GIORGI SCHERER. ACCEPTING DOCTOR: DR. GONZÁLES NUMBER TO CALL FOR REPORT: [phone] (ASK FOR UNIT #2.)
--- NOTE | 2021-04-30 06:39 | NUR ---
[facility] CALLED FOR TRANSPORT. ETA [phone]
--- NOTE | 2021-04-30 07:19 | NUR ---
per niya smith to recieve report after 7:30 after shift change.
--- NOTE | 2021-04-30 07:46 | NUR ---
THE PATIENT IS RECEIVED IN ER BED #14. ALERT AND ORIENTED X4. DENIES PAIN. IN ROOM AIR AND DENIES SOB. RESPIRATION REGULAR AND UNLABORED. WILL CONTINUE TO MONITOR THE PATIENT. SITTER AT THE BEDSIDE
[2021-04-30 07:47] VITALS: BP 133/81
--- NOTE | 2021-04-30 08:16 | NUR ---
Xi ayala in ED - 04/30/21 at 0819 by AMBERLY REPORT GIVEN TO NURSE. PT AWAITING TRANSFER TO FLOOR.
--- NOTE | 2021-04-30 08:17 | NUR ---
REPORT GIVEN TO NURSE. PT TRANSFERED TO [facility] IN STABLE CONDITION.
== END 2021-04-30 08:20 ==
LOC: ER 23:48
DX: R45.851 Suicidal ideations (principal); Z59.01 Sheltered homelessness; Z20.822 Contact with and (suspected) exposure to COVID-19; F20.9 Schizophrenia, unspecified
CPT/HCPCS: 36415; 80048-TC; 80076-TC; 81001; 85025-TC; C9803; G0480

== ENCOUNTER 2021-06-07 01:10 | Emergency (ER) | payer MEDICARE, OTHER ==
[~2021-06-07] VITALS: Ht 177.8 cm; Wt 74.8 kg
[2021-06-07 03:37] LABS: BASOPHILS % (AUTO) 0.4 % (0.0-2.0); EOSINOPHILS % (AUTO) 1.6 % (0.0-6.0); HEMATOCRIT 49 % (39-51); HEMOGLOBIN 16.8 g/dL (13.5-17.5); LYMPHOCYTES # (AUTO) 3.1 K/uL (0.8-4.8); LYMPHOCYTES % (AUTO) 46.8 % (20.0-44.0); MEAN CORPUSCULAR HGB CONC 34 g/dl (31.0-36.0); MEAN CORPUSCULAR VOLUME 97 fL (80-96); MONOCYTES # (AUTO) 0.5 K/uL (0.1-1.30); NEUTROPHILS # (AUTO) 2.9 K/uL (1.8-8.9); NEUTROPHILS % (AUTO) 44.2 % (43.0-81.0); PLATELET COUNT (AUTO) 252 K/uL (150-450); RED BLOOD CELL COUNT(AUTO) 5.08 MIL/uL (4.5-6.0); WHITE BLOOD COUNT (AUTO) 6.6 K/uL (4.3-11.0)
[2021-06-07 04:02] LABS: CALCIUM, SERUM 9.8 mg/dL (8.5-10.1); CARBON DIOXIDE 28 mmol/L (21-32); CHLORIDE 101 mmol/L (98-107); CREATININE 1.2 mg/dL (0.6-1.3); GLUCOSE 89 mg/dL (74-106); POTASSIUM 3.5 mmol/L (3.5-5.1); SODIUM SERUM 139 mmol/L (136-145); UREA NITROGEN, BLOOD 15 mg/dL (7-18)
[2021-06-07 04:08] LABS: ALANINE AMINOTRANSFERASE 46 U/L (12-78); ALBUMIN 4.5 g/dL (3.4-5.0); ALKALINE PHOSPHATASE 108 U/L (46-116); BILIRUBIN,DIRECT 0.1 mg/dL (0.0-0.2); BILIRUBIN,TOTAL 0.4 mg/dL (0.2-1.0); TOTAL PROTEIN, SERUM 8.9 g/dL (6.4-8.2)
[2021-06-07 04:12] LABS: ACETAMINOPHEN 0 ug/ml (10-30); ALCOHOL, BLOOD < 3 mg/dL (0-0)
[2021-06-07 04:20] LABS: ASPARTATE AMINOTRANSFERASE 28 U/L (15-37)
[2021-06-07 05:53] LABS: BILIRUBIN,URINE NEGATIVE (NEGATIVE); COLOR,URINE YELLOW (YELLOW); LEUKOCYTE ESTERASE ,URINE NEGATIVE (NEGATIVE); NITRITE, URINE NEGATIVE (NEGATIVE); PH,URINE 5.5 (5.0-8.0); PROTEIN,URINE NEGATIVE (NEGATIVE); UGLUCOSE NEGATIVE (NEGATIVE); UROBILINOGEN,URINE 0.2 EU/dL (0.2)
[2021-06-07 06:48] LABS: BACTERIA,URINE None seen /HPF (None Seen); SQUAMOUS EPITHELIAL CELL,UR Few /HPF (None Seen); WBC,URINE 0-2 /HPF (0-3)
--- NOTE | 2021-06-07 06:54 | NUR ---
CLINICALS FAXED TO [facility]
--- NOTE | 2021-06-07 07:30 | NUR ---
ASSESSED PT ON BED AWAKE AND ALERT, NOT IN RESPIRATORY DISTRESS, V/S STABLE, KEPT RESTED AND COMFORTABLE. WILL CONTINUE TO MONITOR. AWAITING FOR [facility] FOR ADMISSION INFO.
--- NOTE | 2021-06-07 09:10 | NUR ---
PT ACCEPTED AT [facility] UNDER DR SHORE. REPORT GIVEN TO MARIELENA. AWAITING TRANSPORT.
[2021-06-07 10:37] VITALS: BP 135/70
--- NOTE | 2021-06-07 10:37 | NUR ---
TRANSPORT FROM [facility] AT BEDSIDE.
== END 2021-06-07 10:38 ==
LOC: ER 01:12
DX: F20.9 Schizophrenia, unspecified (principal); F32.9 Major depressive disorder, single episode, unspecified; F17.210 Nicotine dependence, cigarettes, uncomplicated; Z20.822 Contact with and (suspected) exposure to COVID-19; Z59.00 Homelessness unspecified
CPT/HCPCS: 36415; 80048-TC; 80076-TC; 81001; 85025-TC; C9803; G0480

== ENCOUNTER 2021-06-24 00:22 | Emergency (ER) | payer MEDICARE, OTHER ==
[~2021-06-24] VITALS: Ht 175.3 cm; Wt 91.2 kg
--- NOTE | 2021-06-24 00:34 | NUR ---
PT AAOX4, AMBULATORY WITH STEADY GAIT. BIBSELF C/O SI WITH PLAN TO SHOOT SELF. STATED HE HAS BEEN FEELING DEPRESSED. PlACED IN BED, SITTER AT BEDSIDE. AWAITING ER MD FOR EVAL AND ORDERS. PT REQUESTING VOL. ADMISSION.
--- NOTE | 2021-06-24 00:35 | NUR ---
URINE SENT TO LAB
--- NOTE | 2021-06-24 00:45 | NUR ---
RENEE SENT TO LAB
[2021-06-24 01:19] LABS: BASOPHILS % (AUTO) 0.5 % (0.0-2.0); EOSINOPHILS % (AUTO) 1.3 % (0.0-6.0); HEMATOCRIT 46 % (39-51); HEMOGLOBIN 16.2 g/dL (13.5-17.5); LYMPHOCYTES # (AUTO) 1.8 K/uL (0.8-4.8); LYMPHOCYTES % (AUTO) 39.2 % (20.0-44.0); MEAN CORPUSCULAR HGB CONC 35 g/dl (31.0-36.0); MEAN CORPUSCULAR VOLUME 95 fL (80-96); MONOCYTES # (AUTO) 0.3 K/uL (0.1-1.30); MONOCYTES % (AUTO) 7.1 % (2.0-12.0); NEUTROPHILS # (AUTO) 2.4 K/uL (1.8-8.9); NEUTROPHILS % (AUTO) 51.9 % (43.0-81.0); PLATELET COUNT (AUTO) 192 K/uL (150-450); RED BLOOD CELL COUNT(AUTO) 4.88 MIL/uL (4.5-6.0); WHITE BLOOD COUNT (AUTO) 4.6 K/uL (4.3-11.0)
[2021-06-24 01:26] LABS: BILIRUBIN,URINE NEGATIVE (NEGATIVE); COLOR,URINE YELLOW (YELLOW); LEUKOCYTE ESTERASE ,URINE NEGATIVE (NEGATIVE); NITRITE, URINE NEGATIVE (NEGATIVE); PROTEIN,URINE TRACE mg/dl (NEGATIVE); UGLUCOSE NEGATIVE (NEGATIVE); UROBILINOGEN,URINE 0.2 EU/dL (0.2)
[2021-06-24 01:44] LABS: CALCIUM, SERUM 9.3 mg/dL (8.5-10.1); CARBON DIOXIDE 33 mmol/L (21-32); CHLORIDE 103 mmol/L (98-107); CREATININE 1.2 mg/dL (0.6-1.3); GLUCOSE 128 mg/dL (74-106); SODIUM SERUM 141 mmol/L (136-145); UREA NITROGEN, BLOOD 17 mg/dL (7-18)
[2021-06-24 01:50] LABS: ALANINE AMINOTRANSFERASE 65 U/L (12-78); ALBUMIN 4.3 g/dL (3.4-5.0); ALCOHOL, BLOOD < 3 mg/dL (0-0); ALKALINE PHOSPHATASE 108 U/L (46-116); ASPARTATE AMINOTRANSFERASE 26 U/L (15-37); BILIRUBIN,DIRECT 0.1 mg/dL (0.0-0.2); BILIRUBIN,TOTAL 0.5 mg/dL (0.2-1.0); TOTAL PROTEIN, SERUM 8.2 g/dL (6.4-8.2)
[2021-06-24 01:55] LABS: ACETAMINOPHEN 0 ug/ml (10-30)
--- NOTE | 2021-06-24 03:53 | NUR ---
FACESHEET AND CLINICALS FAXED TO [facility].
--- NOTE | 2021-06-24 04:02 | NUR ---
[facility] DUP[facility] - [phone] CORBIN
--- NOTE | 2021-06-24 08:05 | NUR ---
THE PATIENT IS SERVED WITH BREAKFAST. TOLERATES WELL.
[2021-06-24 09:23] LABS: WBC,URINE 0-2 /HPF (0-3)
[2021-06-24 09:24] LABS: BACTERIA,URINE Few /HPF (None Seen); SQUAMOUS EPITHELIAL CELL,UR Rare /HPF (None Seen)
[2021-06-24 10:23] VITALS: BP 135/76
--- NOTE | 2021-06-24 12:05 | NUR ---
LUNCH IS SERVED
--- NOTE | 2021-06-24 12:09 | NUR ---
CALLED [facility] AND SET UP BLS TRASNPORT TO [facility] ETA 1300
--- NOTE | 2021-06-24 13:00 | NUR ---
THE PATIENT IS TRANSFERED TO [facility] IN STABLE CONDITION [facility]
== END 2021-06-24 13:51 ==
LOC: ER 00:26
DX: F32.A Depression, unspecified (principal); R45.851 Suicidal ideations; F20.9 Schizophrenia, unspecified; Z59.00 Homelessness unspecified; Z72.0 Tobacco use
CPT/HCPCS: 36415; 80048-TC; 80076-TC; 81001; 85025-TC; C9803; G0480

== ENCOUNTER 2021-07-02 00:08 | Emergency (ER) | payer MEDICARE, OTHER ==
[~2021-07-02] VITALS: Ht 175.3 cm; Wt 81.6 kg
--- NOTE | 2021-07-02 02:27 | NUR ---
BIBS. TO ER BED 18. AAOX4. NOT IN RESP DISTRESS. AMBULATORY. CAME IN FOR FEELING DEPRESSED AND SUICIDAL D/T HEARING VOICES THAT IS TELLING HIM TO HARM HIMSELF. DENIES ANY SPECIFIC PLANS. PT IS SEEKING VOLUNTARY ADMISSION TO PSYCH FACILITY. AWAITING MD FOR EVAL.
[2021-07-02 02:45] LABS: BASOPHILS % (AUTO) 0.5 % (0.0-2.0); EOSINOPHILS % (AUTO) 1.6 % (0.0-6.0); HEMATOCRIT 46 % (39-51); HEMOGLOBIN 15.7 g/dL (13.5-17.5); LYMPHOCYTES # (AUTO) 2.3 K/uL (0.8-4.8); LYMPHOCYTES % (AUTO) 37.6 % (20.0-44.0); MEAN CORPUSCULAR HGB CONC 34 g/dl (31.0-36.0); MEAN CORPUSCULAR VOLUME 96 fL (80-96); MONOCYTES # (AUTO) 0.4 K/uL (0.1-1.30); NEUTROPHILS # (AUTO) 3.2 K/uL (1.8-8.9); NEUTROPHILS % (AUTO) 53.3 % (43.0-81.0); PLATELET COUNT (AUTO) 182 K/uL (150-450); RED BLOOD CELL COUNT(AUTO) 4.74 MIL/uL (4.5-6.0); WHITE BLOOD COUNT (AUTO) 6.1 K/uL (4.3-11.0)
[2021-07-02 03:10] LABS: ALANINE AMINOTRANSFERASE 47 U/L (12-78); ALBUMIN 4.1 g/dL (3.4-5.0); ALCOHOL, BLOOD < 3 mg/dL (0-0); ALKALINE PHOSPHATASE 112 U/L (46-116); ASPARTATE AMINOTRANSFERASE 19 U/L (15-37); BILIRUBIN,DIRECT 0.1 mg/dL (0.0-0.2); BILIRUBIN,TOTAL 0.3 mg/dL (0.2-1.0); CALCIUM, SERUM 9.4 mg/dL (8.5-10.1); CARBON DIOXIDE 29 mmol/L (21-32); CHLORIDE 104 mmol/L (98-107); GLUCOSE 111 mg/dL (74-106); POTASSIUM 3.9 mmol/L (3.5-5.1); SODIUM SERUM 141 mmol/L (136-145); TOTAL PROTEIN, SERUM 7.9 g/dL (6.4-8.2); UREA NITROGEN, BLOOD 18 mg/dL (7-18)
[2021-07-02 03:12] LABS: ACETAMINOPHEN 0 ug/ml (10-30)
[2021-07-02 04:44] LABS: BILIRUBIN,URINE NEGATIVE (NEGATIVE); COLOR,URINE YELLOW (YELLOW); LEUKOCYTE ESTERASE ,URINE NEGATIVE (NEGATIVE); NITRITE, URINE NEGATIVE (NEGATIVE); PROTEIN,URINE NEGATIVE (NEGATIVE); UGLUCOSE NEGATIVE (NEGATIVE); UROBILINOGEN,URINE 0.2 EU/dL (0.2)
--- NOTE | 2021-07-02 06:17 | NUR ---
CLINICALS FAXED TO [facility]
[2021-07-02 08:46] LABS: BACTERIA,URINE None seen /HPF (None Seen); MUCUS,URINE Rare /LPF (None Seen); SQUAMOUS EPITHELIAL CELL,UR None Seen /HPF (None Seen)
--- NOTE | 2021-07-02 09:48 | NUR ---
CALLED [facility] UNDER REVIEW.
--- NOTE | 2021-07-02 14:59 | NUR ---
PT ACCEPTED TO [facility] UNDER DR. BO CALL [phone] X [phone] FOR REPORT.
--- NOTE | 2021-07-02 15:03 | NUR ---
[facility] CALLED WITH ETA 45 MINS PER FRANSISCO
--- NOTE | 2021-07-02 15:42 | NUR ---
REPORT GIVEN TO FAHAD RAND AT [facility]. TRANSPORTED IN STABLE CONDITION.
[2021-07-02 15:43] VITALS: BP 149/97
== END 2021-07-02 15:46 ==
LOC: ER 00:10
DX: R45.851 Suicidal ideations (principal); Z20.822 Contact with and (suspected) exposure to COVID-19; Z59.00 Homelessness unspecified; F20.9 Schizophrenia, unspecified; F32.A Depression, unspecified; F17.200 Nicotine dependence, unspecified, uncomplicated; R03.0 Elevated blood-pressure reading, without diagnosis of hypertension
CPT/HCPCS: 36415; 80048-TC; 80076-TC; 81001; 85025-TC; C9803; G0480

== ENCOUNTER 2021-07-15 01:08 | Emergency (ER) | payer MEDICARE, OTHER ==
[~2021-07-15] VITALS: Ht 175.3 cm; Wt 90.7 kg
--- NOTE | 2021-07-15 02:02 | NUR ---
BIBS. TO ER BED 19. AAOX4. NOT IN RESP DISTRESS. AMBULATORY. CAME IN FOR FEELING SUICIDAL W/O ANY SPECIFIC PLAN. PT IS SEEKING VOLUNTARY ADMISSION. PT GOWN, BELONGINGS PLACED IN LOCKER. SITTER AT BEDSIDE. AWAITING MD FOR EVAL.
--- NOTE | 2021-07-15 02:10 | NUR ---
URINE COLLECTED AND SENT TO LAB
--- NOTE | 2021-07-15 02:13 | NUR ---
COVID SWAB DONE AND SENT TO LAB
[2021-07-15 02:32] LABS: HEMOGLOBIN 15.6 g/dL (13.5-17.5); RED BLOOD CELL COUNT(AUTO) 4.85 MIL/uL (4.5-6.0); WHITE BLOOD COUNT (AUTO) 6.2 K/uL (4.3-11.0)
[2021-07-15 02:33] LABS: BASOPHILS % (AUTO) 0.7 % (0.0-2.0); EOSINOPHILS % (AUTO) 1.7 % (0.0-6.0); HEMATOCRIT 46 % (39-51); LYMPHOCYTES # (AUTO) 2.3 K/uL (0.8-4.8); LYMPHOCYTES % (AUTO) 37.4 % (20.0-44.0); MEAN CORPUSCULAR HGB CONC 34 g/dl (31.0-36.0); MEAN CORPUSCULAR VOLUME 94 fL (80-96); MONOCYTES # (AUTO) 0.4 K/uL (0.1-1.30); MONOCYTES % (AUTO) 6.6 % (2.0-12.0); NEUTROPHILS # (AUTO) 3.3 K/uL (1.8-8.9); NEUTROPHILS % (AUTO) 53.6 % (43.0-81.0); PLATELET COUNT (AUTO) 196 K/uL (150-450)
[2021-07-15 02:41] LABS: ALANINE AMINOTRANSFERASE 85 U/L (12-78); ALKALINE PHOSPHATASE 112 U/L (46-116); ASPARTATE AMINOTRANSFERASE 59 U/L (15-37); BILIRUBIN,DIRECT 0.1 mg/dL (0.0-0.2); BILIRUBIN,TOTAL 0.3 mg/dL (0.2-1.0); CARBON DIOXIDE 30 mmol/L (21-32); CHLORIDE 105 mmol/L (98-107); CREATININE 1.1 mg/dL (0.6-1.3); POTASSIUM 3.9 mmol/L (3.5-5.1); SODIUM SERUM 143 mmol/L (136-145); UREA NITROGEN, BLOOD 13 mg/dL (7-18)
[2021-07-15 02:50] LABS: ACETAMINOPHEN < 2 ug/ml (10-30); ALCOHOL, BLOOD < 3 mg/dL (0-0)
--- NOTE | 2021-07-15 03:11 | NUR ---
PT PROVIDED WITH WARM BLANKET
--- NOTE | 2021-07-15 03:11 | NUR ---
PT PROVIDED WITH JUICE
[2021-07-15 04:30] LABS: CALCIUM, SERUM 8.9 mg/dL (8.5-10.1); GLUCOSE 118 mg/dL (74-106)
[2021-07-15 08:36] LABS: BILIRUBIN,URINE NEGATIVE (NEGATIVE); COLOR,URINE YELLOW (YELLOW); LEUKOCYTE ESTERASE ,URINE NEGATIVE (NEGATIVE); NITRITE, URINE NEGATIVE (NEGATIVE); PH,URINE 6.5 (5.0-8.0); PROTEIN,URINE NEGATIVE (NEGATIVE); UGLUCOSE NEGATIVE (NEGATIVE); UROBILINOGEN,URINE 0.2 EU/dL (0.2)
--- NOTE | 2021-07-15 08:43 | NUR ---
Plan: MARIANNE referred pt. to [facility] [[address] [place] [id number] FAX:[phone]] for voluntary psychiatric treatment.
[2021-07-15 09:19] LABS: BACTERIA,URINE None seen /HPF (None Seen); SQUAMOUS EPITHELIAL CELL,UR None Seen /HPF (None Seen); WBC,URINE 0-2 /HPF (0-3)
[2021-07-15 09:47] LABS: ALBUMIN 4.4 g/dL (3.4-5.0); TOTAL PROTEIN, SERUM 7.8 g/dL (6.4-8.2)
--- NOTE | 2021-07-15 10:33 | NUR ---
faxed clinicals to nahid sm[facility]
--- NOTE | 2021-07-15 11:15 | NUR ---
SS Consult: SS Consult: SS Consult requested for homelessness & SI. The pt. is a 55 -year old Black male patient who presented to the ED due SI. Upon SS consult, the pt. is Alert & Oriented x 4 and makes avoidant eye contact. The pt. appears unkempt. Pt.'s speech is clear and has depressed mood and affect. MARIANNE explored pt.'s living situation. Per pt. he has been experiencing homelessness for "a while". MARIANNE explored pt.'s drug & ETOH use. Pt. denies drug or alcohol use. MARIANNE explored pt.'s mental health Hx. Pt. denies any psychiatric diagnosis. Pt. states he is currently having SI that began about a week ago and has no plan. Pt. states he also experiencing auditory hallucination and "can't make out what they say". Pt. denies current HI and visual hallucinations. Per pt., he is currently ambulatory & independent with all his ADL's. MARIANNE explored pt.'s support system. Pt. states he has "no one". Plan: Pt. has already been referred to [facility] [[address] [place] [address] FAX:[phone]] for inpatient psychiatric treatment. Pt. MARIANNE provided pt. with homeless resources and pt. accepted them. Pt. signed homeless waiver and it was placed in the chart. Year-round shelters: [facility] [place] [address] [place] [address] ; [facility] [place] [address] [place] [address]; [facility] Eoudrvc7379 [facility] [address] Winter Shelters: SPA 2 | [facility] Cheyanneder: Ting farias [facility] Address: Confidential (call for location ) Population Served: Coed # of Beds: 57 SPA 4 | [facility] Provider: Home at Last Address: [address] [place] [address] # of Beds: 49 Population Served: Coed SPA 6 | [facility] Provider: Home at Last Address: [address] [facility], [address] # of Beds: 49 Population Served: Coed Esdras [facility] Provider: Frida GARCIA Address: [address] [facility] [address] # of Beds: 20 Population Served: Women BÁRBARA Facility Provider: Home at Last Address: [address] [facility] [address] # of Beds: 30 Population Served: Women SPA 8 | [facility] Library Provider: Liane of Dodie Address: [address] On license of [facility] [address] # of Beds: 65 Population Served: Coed Hygiene: [facility]: [address] Fabienisela Epstein[facility] ; [facility] Center[facility] [address] [facility] ; [facility] 3283 [facility] [place] . Food Resources: [place] [facility] at [facility]- 5700 [facility]; Meet Each Need with Dignity ([facility]) 25260 [facility]; [facility] 4330 [facility]; [facility] 8520 [facility]. Mental Health resources provided: [facility] [address] [place] [address] ; [facility] [address] [facility] LisbonUNC Health Wayne [address], [place] [address] ; Ceci Brito [facility] [address] [place] [address] ; [facility] [address] [place], [place] [phone] Healthcare Clinics: [facility] [address]1 [facility], [address] [place]. [place] ; [facility] 68[address] [facility] [address] [place] [address]; [facility] [address] [place] [address] [phone] Counseling--Outpatient [facility] 44[address] [facility], [address] [place], [place] [address] (Specializes in in-depth psychotherapy for emotional distress: anxiety, depression, interpersonal conflicts, life transitions, childhood abuse) [facility] [address] [place], [place] [phone] (Assist with solving problem marital difficulties, separation & divorce, aging parents, & grief, chronic & terminal illness) [facility] [address] [place] [address] (Deal with loss & grief, anxiety, marital difficulties) Homebound/Mental Health Services [address] [facility] [address] [place] [address] (Provide in-home mental services to people who are incapable of leaving their homes) Organization for Needs of the Elderly Senior Service/Resource Center [address] [facility] [place] [address] [facility] 6514 [facility] Hospital[facility]el [facility] [place] [address] PSYCHIATRIC OUTPATIENT SERVICES [facility] Partial Hospitalization and Intensive Outpatient Program (Managed Care and [place] Only)[address]005 [facility] [phone] [facility] Partial Hospitalization and Outpatient [id number] [facility]. [address] [place], [place] [phone] [facility] Klr87054 [facility] [address] [place], [place] [phone] [facility] Partial Hospitalization and Outpatient [id number] [place], [phone] Substance Abuse resources provided included: [facility] Substance Abuse Self-Helpline (SAS) ; CRI -HELP [address]47 [facility]. [place]. [place] [address] ; [facility] [address] [facility] [address] ; [facility] Rehabilitation Program [address] [facility] [place] [address] ; [facility] [address] [facility] [phone] ; [facility] 4940 Van [facility] [address] ; [facility] Emergency Department 909 Formerly [facility] Hospital[facility] [phone] ; [facility] Substance Abuse Helpline(SAS)[facility] ; [facility] ; [facility]; [facility] Emergency Department [place]; Cri-Help [place]; I-ADARP Inter Agency Drug Abuse Recovery [facility]; [place] [facility] [place]; [facility] Cubero; [facility]; [facility] [place]; Alcoholics Anonymous -SFV; Gj-Pnxr-Amjnxng ; Marijuana Anonymous -SFV; Narcotics Anonymous www.na.org;
--- NOTE | 2021-07-15 12:02 | NUR ---
LUNCH TRAY PROVIDED.
--- NOTE | 2021-07-15 14:22 | NUR ---
SO ARACELY ARIAS CALLED AND WAS NOTIFIED OF PT ACCEPTANCE UNDER THE CRAE OF DR. CORBIN NUMBER FOR REPORT [phone] "UNIT 2"
[2021-07-15 15:30] VITALS: BP 129/64
--- NOTE | 2021-07-15 15:48 | NUR ---
TRANSPORTED VIA [employer] SHUTTLE. STABLE CONDITION.
== END 2021-07-15 15:49 ==
LOC: ER 01:08
DX: R45.851 Suicidal ideations (principal); I10 Essential (primary) hypertension; Z20.822 Contact with and (suspected) exposure to COVID-19; F20.9 Schizophrenia, unspecified; Z59.00 Homelessness unspecified; F17.200 Nicotine dependence, unspecified, uncomplicated; R74.01 Elevation of levels of liver transaminase levels
CPT/HCPCS: 36415; 80048-TC; 80076-TC; 81001; 85025-TC; C9803; G0480

== ENCOUNTER 2021-08-26 04:07 | Emergency (ER) | payer MEDICARE, OTHER ==
[~2021-08-26] VITALS: Ht 180.3 cm; Wt 79.4 kg
--- NOTE | 2021-08-26 05:20 | NUR ---
BIBSELF C/O +SI OD ON DRUGS AND PILLS, LOOKING FOR VOL PSYCH ADMIT. PATIENT IS A/O X 4, RR EVEN AND UNLABORED, NO SOB NOTED. PATIENT NOTED WITH STEADY GAIT, SKIN INTACT. PATIENT BELONGINGS TAKEN PLACED IN PT LOCKER. PT IN HOSPITAL GOWN. WILL CONTINUE TO MONITOR.
--- NOTE | 2021-08-26 05:22 | NUR ---
URINE AND COVID SWAB COLLECTED AND SENT TO LAB
[2021-08-26 05:24] VITALS: BP 148/88
[2021-08-26 05:33] LABS: BASOPHILS % (AUTO) 0.7 % (0.0-2.0); BILIRUBIN,URINE NEGATIVE (NEGATIVE); COLOR,URINE YELLOW (YELLOW); EOSINOPHILS % (AUTO) 2.1 % (0.0-6.0); HEMATOCRIT 47 % (39-51); HEMOGLOBIN 16.2 g/dL (13.5-17.5); LEUKOCYTE ESTERASE ,URINE NEGATIVE (NEGATIVE); LYMPHOCYTES # (AUTO) 3.1 K/uL (0.8-4.8); LYMPHOCYTES % (AUTO) 47.1 % (20.0-44.0); MEAN CORPUSCULAR HGB CONC 34 g/dl (31.0-36.0); MEAN CORPUSCULAR VOLUME 95 fL (80-96); MONOCYTES # (AUTO) 0.5 K/uL (0.1-1.30); MONOCYTES % (AUTO) 6.9 % (2.0-12.0); NEUTROPHILS # (AUTO) 2.9 K/uL (1.8-8.9); NEUTROPHILS % (AUTO) 43.2 % (43.0-81.0); NITRITE, URINE NEGATIVE (NEGATIVE); PLATELET COUNT (AUTO) 223 K/uL (150-450); PROTEIN,URINE NEGATIVE (NEGATIVE); RED BLOOD CELL COUNT(AUTO) 4.97 MIL/uL (4.5-6.0); UGLUCOSE NEGATIVE (NEGATIVE); UROBILINOGEN,URINE 0.2 EU/dL (0.2); WHITE BLOOD COUNT (AUTO) 6.7 K/uL (4.3-11.0)
[2021-08-26 05:41] LABS: CALCIUM, SERUM 9.3 mg/dL (8.5-10.1); CARBON DIOXIDE 27 mmol/L (21-32); CHLORIDE 104 mmol/L (98-107); CREATININE 1.1 mg/dL (0.6-1.3); GLUCOSE 104 mg/dL (74-106); POTASSIUM 3.6 mmol/L (3.5-5.1); SODIUM SERUM 139 mmol/L (136-145); UREA NITROGEN, BLOOD 15 mg/dL (7-18)
[2021-08-26 05:47] LABS: ALANINE AMINOTRANSFERASE 38 U/L (12-78); ALBUMIN 4.3 g/dL (3.4-5.0); ALCOHOL, BLOOD < 3 mg/dL (0-0); ALKALINE PHOSPHATASE 118 U/L (46-116); ASPARTATE AMINOTRANSFERASE 28 U/L (15-37); BILIRUBIN,DIRECT 0.1 mg/dL (0.0-0.2); BILIRUBIN,TOTAL 0.4 mg/dL (0.2-1.0); TOTAL PROTEIN, SERUM 7.9 g/dL (6.4-8.2)
[2021-08-26 05:48] LABS: ACETAMINOPHEN 0 ug/ml (10-30)
[2021-08-26 07:22] LABS: BACTERIA,URINE None seen /HPF (None Seen); SQUAMOUS EPITHELIAL CELL,UR Rare /HPF (None Seen)
--- NOTE | 2021-08-26 09:11 | NUR ---
MARIANNE faxed clinicals to [facility] [[address] [place] [address] FAX:[phone]] for voluntary psychiatric treatment.
--- NOTE | 2021-08-26 10:07 | NUR ---
Pt accepted to Denice Fi[facility] Accepting MD Dr. Gloria Will go to unit 2 Number for report [phone] Ex 2039 Eta for transport 1300
--- NOTE | 2021-08-26 12:59 | NUR ---
[facility] TRANSPORT CAME AND PICKED UP PATIENT
== END 2021-08-26 13:00 ==
LOC: ER 04:07
DX: R45.851 Suicidal ideations (principal); F32.A Depression, unspecified; F20.9 Schizophrenia, unspecified; Z59.02 Unsheltered homelessness; Z20.822 Contact with and (suspected) exposure to COVID-19
CPT/HCPCS: 36415; 80048-TC; 80076-TC; 81001; 85025-TC; C9803; G0480

== ENCOUNTER 2021-09-05 00:37 | Emergency (ER) | payer MEDICARE, OTHER ==
[~2021-09-05] VITALS: Ht 180.3 cm; Wt 79.4 kg
[2021-09-05 00:49] VITALS: BP 131/56
== END 2021-09-05 01:41 ==
LOC: ER 00:45
DX: Z02.89 Encounter for other administrative examinations (principal); F20.9 Schizophrenia, unspecified; F32.A Depression, unspecified; F17.200 Nicotine dependence, unspecified, uncomplicated; Z59.00 Homelessness unspecified

== ENCOUNTER 2021-09-09 01:49 | Emergency (ER) | payer MEDICARE, OTHER ==
[~2021-09-09] VITALS: Ht 175.3 cm; Wt 90.7 kg
--- NOTE | 2021-09-09 02:23 | NUR ---
URINE COLLECTED SENT TO LAB
--- NOTE | 2021-09-09 02:24 | NUR ---
LAB AT BEDSIDE
--- NOTE | 2021-09-09 02:24 | NUR ---
COVID SWAB SENT TO LAB
[2021-09-09 02:36] LABS: BASOPHILS % (AUTO) 0.5 % (0.0-2.0); EOSINOPHILS % (AUTO) 2.1 % (0.0-6.0); HEMATOCRIT 46 % (39-51); HEMOGLOBIN 15.7 g/dL (13.5-17.5); LYMPHOCYTES # (AUTO) 2.6 K/uL (0.8-4.8); LYMPHOCYTES % (AUTO) 40.8 % (20.0-44.0); MEAN CORPUSCULAR HGB CONC 34 g/dl (31.0-36.0); MEAN CORPUSCULAR VOLUME 95 fL (80-96); MONOCYTES # (AUTO) 0.6 K/uL (0.1-1.30); MONOCYTES % (AUTO) 8.7 % (2.0-12.0); NEUTROPHILS # (AUTO) 3.1 K/uL (1.8-8.9); NEUTROPHILS % (AUTO) 47.9 % (43.0-81.0); PLATELET COUNT (AUTO) 202 K/uL (150-450); RED BLOOD CELL COUNT(AUTO) 4.84 MIL/uL (4.5-6.0); WHITE BLOOD COUNT (AUTO) 6.5 K/uL (4.3-11.0)
[2021-09-09 02:42] LABS: BILIRUBIN,URINE NEGATIVE (NEGATIVE); COLOR,URINE YELLOW (YELLOW); LEUKOCYTE ESTERASE ,URINE NEGATIVE (NEGATIVE); NITRITE, URINE NEGATIVE (NEGATIVE); PROTEIN,URINE NEGATIVE (NEGATIVE); UGLUCOSE NEGATIVE (NEGATIVE); UROBILINOGEN,URINE 0.2 EU/dL (0.2)
[2021-09-09 02:54] LABS: CALCIUM, SERUM 9.5 mg/dL (8.5-10.1); CARBON DIOXIDE 26 mmol/L (21-32); CHLORIDE 103 mmol/L (98-107); CREATININE 1.3 mg/dL (0.6-1.3); GLUCOSE 102 mg/dL (74-106); POTASSIUM 3.3 mmol/L (3.5-5.1); SODIUM SERUM 139 mmol/L (136-145); UREA NITROGEN, BLOOD 15 mg/dL (7-18)
[2021-09-09 03:06] LABS: ALANINE AMINOTRANSFERASE 51 U/L (12-78); ALBUMIN 4.1 g/dL (3.4-5.0); ALCOHOL, BLOOD < 3 mg/dL (0-0); ALKALINE PHOSPHATASE 120 U/L (46-116); ASPARTATE AMINOTRANSFERASE 24 U/L (15-37); BILIRUBIN,DIRECT 0.1 mg/dL (0.0-0.2); BILIRUBIN,TOTAL 0.4 mg/dL (0.2-1.0); TOTAL PROTEIN, SERUM 7.8 g/dL (6.4-8.2)
[2021-09-09 03:07] LABS: ACETAMINOPHEN 0 ug/ml (10-30)
--- NOTE | 2021-09-09 03:23 | NUR ---
FACESHEET AND CLINICALS FAXED TO [facility].
--- NOTE | 2021-09-09 04:50 | NUR ---
Xi ayala in ED - 09/09/21 at 0452 by QUINTEN PER LUIZ CLOTH BIN PACKER: PT ACCEPTED UNDER DR. CORBIN CALL FOR REPORT [phone] ROOM & UNIT TO BE GIVEN DURING REPORT
--- NOTE | 2021-09-09 04:52 | NUR ---
PER LUIZ ADULT PSYCHIATRIST: PT ACCEPTED UNDER DR. CORBIN CALL FOR REPORT ROOM & UNIT TO BE GIVEN DURING REPORT Addendum: 09/09/21 at 0501 by QUINTEN
--- NOTE | 2021-09-09 04:55 | NUR ---
[facility] ETA 0600
--- NOTE | 2021-09-09 05:02 | NUR ---
REPORT GIVEN TO FRANK DUPREE FOR SHAWANDA
--- NOTE | 2021-09-09 06:26 | NUR ---
PT TRANSFERRED TO GAMALIEL DUPREE [facility]IA [facility]. VSS
--- NOTE | 2021-09-09 06:26 | NUR ---
PT PICKED UP BY [facility]. REPORT GIVEN TO BILLBOARD ERECTOR. BELONGINGS TRANSPORTED WITH PATIENT.
[2021-09-09 06:27] VITALS: BP 139/87
== END 2021-09-09 06:27 ==
LOC: ER 01:52
DX: R45.851 Suicidal ideations (principal); F20.9 Schizophrenia, unspecified; Z59.00 Homelessness unspecified; F17.200 Nicotine dependence, unspecified, uncomplicated
CPT/HCPCS: 36415; 80048-TC; 80076-TC; 85025-TC; C9803; G0480

== ENCOUNTER 2021-09-20 02:11 | Emergency (ER) | payer MEDICARE, OTHER ==
[~2021-09-20] VITALS: Ht 180.3 cm; Wt 4.5 kg
--- NOTE | 2021-09-20 02:34 | NUR ---
PATIENT BIBSELF C/O + SI WITH NO PLAN, WANTING VOL PSYCH ADMIT. PATIENT IS A/O X 4, RR EVEN AND UNLABORED, NO SOB NOTED, VSS. PATIENT TAKEN TO ER BED 18. PATIENTS BELONGINGS COLLECTED AND PLACED IN LOCKER. PATIENT PLACED IN HOSPITAL GOWN. PATIENT SKIN INTACT, AMBULATES WITH STEADY GAIT. WILL CONTINUE TO MONITOR.
--- NOTE | 2021-09-20 02:35 | NUR ---
URINE COLLECTED AND SENT TO LAB
--- NOTE | 2021-09-20 02:36 | NUR ---
COVID SWAB COLLECTED AND SENT TO LAB
[2021-09-20 03:11] LABS: BASOPHILS % (AUTO) 0.4 % (0.0-2.0); EOSINOPHILS % (AUTO) 1.3 % (0.0-6.0); HEMATOCRIT 47 % (39-51); HEMOGLOBIN 16.1 g/dL (13.5-17.5); LYMPHOCYTES # (AUTO) 2.3 K/uL (0.8-4.8); LYMPHOCYTES % (AUTO) 36.9 % (20.0-44.0); MEAN CORPUSCULAR HGB CONC 34 g/dl (31.0-36.0); MEAN CORPUSCULAR VOLUME 96 fL (80-96); MONOCYTES # (AUTO) 0.5 K/uL (0.1-1.30); NEUTROPHILS # (AUTO) 3.3 K/uL (1.8-8.9); NEUTROPHILS % (AUTO) 53.4 % (43.0-81.0); PLATELET COUNT (AUTO) 208 K/uL (150-450); RED BLOOD CELL COUNT(AUTO) 4.89 MIL/uL (4.5-6.0); WHITE BLOOD COUNT (AUTO) 6.2 K/uL (4.3-11.0)
[2021-09-20 03:16] LABS: BILIRUBIN,URINE NEGATIVE (NEGATIVE); COLOR,URINE YELLOW (YELLOW); LEUKOCYTE ESTERASE ,URINE NEGATIVE (NEGATIVE); NITRITE, URINE NEGATIVE (NEGATIVE); PROTEIN,URINE TRACE mg/dl (NEGATIVE); UGLUCOSE NEGATIVE (NEGATIVE); UROBILINOGEN,URINE 0.2 EU/dL (0.2)
[2021-09-20 03:24] LABS: CALCIUM, SERUM 9.5 mg/dL (8.5-10.1); CARBON DIOXIDE 28 mmol/L (21-32); CHLORIDE 102 mmol/L (98-107); CREATININE 1.1 mg/dL (0.6-1.3); GLUCOSE 105 mg/dL (74-106); POTASSIUM 3.4 mmol/L (3.5-5.1); SODIUM SERUM 138 mmol/L (136-145); UREA NITROGEN, BLOOD 13 mg/dL (7-18)
[2021-09-20 03:30] LABS: ALANINE AMINOTRANSFERASE 47 U/L (12-78); ALBUMIN 4.4 g/dL (3.4-5.0); ALCOHOL, BLOOD < 3 mg/dL (0-0); ALKALINE PHOSPHATASE 122 U/L (46-116); ASPARTATE AMINOTRANSFERASE 18 U/L (15-37); BILIRUBIN,DIRECT 0.1 mg/dL (0.0-0.2); BILIRUBIN,TOTAL 0.3 mg/dL (0.2-1.0); TOTAL PROTEIN, SERUM 8.2 g/dL (6.4-8.2)
[2021-09-20 03:33] LABS: ACETAMINOPHEN 0 ug/ml (10-30)
--- NOTE | 2021-09-20 03:50 | NUR ---
FACESHEET AND CLINICALS FAXED TO [facility].
--- NOTE | 2021-09-20 07:49 | NUR ---
report given to Cassandra núñez medical housekeeper.
[2021-09-20 08:48] VITALS: BP 131/88
[2021-09-20 09:08] LABS: BACTERIA,URINE None seen /HPF (None Seen); RBC,URINE 0-2 /HPF (0-2); SQUAMOUS EPITHELIAL CELL,UR 0-2 /HPF (None Seen); WBC,URINE NONE SEEN /HPF (0-3)
--- NOTE | 2021-09-20 09:34 | NUR ---
[facility] AT BEDSIDE FOR PT PAYROLL ASSISTANT.
== END 2021-09-20 09:35 ==
LOC: ER 02:26
DX: R45.851 Suicidal ideations (principal); Z59.00 Homelessness unspecified; F20.9 Schizophrenia, unspecified; F17.200 Nicotine dependence, unspecified, uncomplicated; Z20.822 Contact with and (suspected) exposure to COVID-19
CPT/HCPCS: 36415; 80048-TC; 80076-TC; 81001; 85025-TC; C9803; G0480

== ENCOUNTER 2021-10-07 06:12 | Emergency (ER) | payer MEDICARE, OTHER ==
[~2021-10-07] VITALS: Ht 177.8 cm; Wt 74.8 kg
--- NOTE | 2021-10-07 06:29 | NUR ---
PT BIBSELF C/O MED CLEARANCE FOR VOLUNTARY ADMISSION. SUICIDAL NO SPECIFIC PLANS. PLACED IN GOWN, ON MONITOR, AND PULSE OX. BELONINGS PLACED IN LOCKER.
[2021-10-07 06:48] LABS: BASOPHILS % (AUTO) 0.4 % (0.0-2.0); EOSINOPHILS % (AUTO) 1.2 % (0.0-6.0); HEMATOCRIT 48 % (39-51); HEMOGLOBIN 16.6 g/dL (13.5-17.5); LYMPHOCYTES # (AUTO) 2.4 K/uL (0.8-4.8); LYMPHOCYTES % (AUTO) 40.2 % (20.0-44.0); MEAN CORPUSCULAR HGB CONC 34 g/dl (31.0-36.0); MEAN CORPUSCULAR VOLUME 96 fL (80-96); MONOCYTES # (AUTO) 0.4 K/uL (0.1-1.30); MONOCYTES % (AUTO) 6.2 % (2.0-12.0); NEUTROPHILS # (AUTO) 3.1 K/uL (1.8-8.9); PLATELET COUNT (AUTO) 204 K/uL (150-450); RED BLOOD CELL COUNT(AUTO) 5.07 MIL/uL (4.5-6.0)
[2021-10-07 06:57] LABS: ALANINE AMINOTRANSFERASE 54 U/L (12-78); ALBUMIN 4.5 g/dL (3.4-5.0); ALCOHOL, BLOOD < 3 mg/dL (0-0); ALKALINE PHOSPHATASE 132 U/L (46-116); ASPARTATE AMINOTRANSFERASE 26 U/L (15-37); BILIRUBIN,DIRECT 0.1 mg/dL (0.0-0.2); BILIRUBIN,TOTAL 0.4 mg/dL (0.2-1.0); CALCIUM, SERUM 9.6 mg/dL (8.5-10.1); CARBON DIOXIDE 27 mmol/L (21-32); CHLORIDE 101 mmol/L (98-107); CREATININE 1.2 mg/dL (0.6-1.3); GLUCOSE 190 mg/dL (74-106); POTASSIUM 3.7 mmol/L (3.5-5.1); SODIUM SERUM 139 mmol/L (136-145); TOTAL PROTEIN, SERUM 8.4 g/dL (6.4-8.2); UREA NITROGEN, BLOOD 14 mg/dL (7-18)
[2021-10-07 07:08] LABS: ACETAMINOPHEN < 10 ug/ml (10-30)
--- NOTE | 2021-10-07 07:43 | NUR ---
BREAKFAST TRAY PROVIDED.
[2021-10-07 07:49] LABS: BILIRUBIN,URINE NEGATIVE (NEGATIVE); COLOR,URINE YELLOW (YELLOW); LEUKOCYTE ESTERASE ,URINE NEGATIVE (NEGATIVE); NITRITE, URINE NEGATIVE (NEGATIVE); PROTEIN,URINE NEGATIVE (NEGATIVE); UGLUCOSE NEGATIVE (NEGATIVE); UROBILINOGEN,URINE 0.2 EU/dL (0.2)
[2021-10-07 08:19] LABS: BACTERIA,URINE None seen /HPF (None Seen); SQUAMOUS EPITHELIAL CELL,UR None Seen /HPF (None Seen); WBC,URINE 0-2 /HPF (0-3)
--- NOTE | 2021-10-07 08:58 | NUR ---
MARIANNE faxed clinicals to [facility] [[address] [place] [address] [phone] ] for voluntary psychiatric treatment.
--- NOTE | 2021-10-07 10:45 | NUR ---
SS consult: SS Consult requested for SI and homelessness. The pt. is a 55-year-old Black male patient who came into ED due to: suicidal ideation per EMR. Upon SS consult, the pt. is Alert & Oriented x 3 and makes good eye contact. The pt. appears unkempt with depressed mood & affect. Pt.'s speech is clear. Pt. denies HI and denies auditory hallucinations and states he sees "spots". Patient stated he is having thoughts of suicide with no plan. SW offered patient voluntary admission to psychiatric facility for treatment and pt. is agreeable. SW explored pt.'s living situation. Patient states he has been experiencing homelessness for the past 1 month. SW explored pt.'s mental health Hx. Patient stated that he has been diagnosed with Schizophrenia & Depression and is currently on Risperdal. SW provided resources for fdc & homelessness and pt. accepted them. SW explored pt.'s drug & ETOH use. Pt. denies any drug or alcohol use. Per pt. he is ambulatory and independent with all his ADL's. SW explored pt.'s support system. Pt. states he has no family or friends. Plan: Pt. was referred pt. to [facility] [[address] [place] [address] FAX:[phone]] for inpatient psychiatric treatment. Pt. was provided with mental health & homeless resources and pt. accepted them. Pt. signed homeless waiver and it was placed in the chart. Year-round shelters: [facility] [place] [address] [place], [place] [phone] ; [facility] [place] [address] [place] [address]; [facility] Aqmkuee5045 [facility]. [facility] [address] Hygiene: [place] [facility]: [address] Fabien Bro [place] ; [place] [facility] [address] [facility] ; [facility] 8949 Earl Weinberg . Food Resources: [place] Food Pant[facility] at [facility]- [address]31 [address]. [place]; Meet Each Need with Dignity (MEND) [address] [address] Rob[address]. [place]; [facility] Food Pantry 0416 [facility]; [facility] 7783 [address] Tete EsquivelDobbins. Mental Health resources provided: [facility] [address] [place], [place] [address] ; [facility], Inc[facility] [address], [place], [place] [phone] ; [facility] [address]3502 [facility] [place], [place] [phone] ; [facility] [address] [place], [place] [address] Healthcare Clinics: [facility] 6551 [facility], [address] [place]. [place] ; [facility] 6801 [facility] [address] [place] [address]; [facility] [place] [address] [place] [address] [phone] Counseling--Outpatient [facility] 44[address] [facility], [address] [place], [place] [address] (Specializes in in-depth psychotherapy for emotional distress: anxiety, depression, interpersonal conflicts, life transitions, childhood abuse) [facility] [address] [place] [address] (Assist with solving problem marital difficulties, separation & divorce, aging parents, & grief, chronic & terminal illness) [facility] [address] [place] [address] (Deal with loss & grief, anxiety, marital difficulties) Homebound/Mental Health Services [address] Tushar [facility], [address] [place], [place] [address] (Provide in-home mental services to people who are incapable of leaving their homes) Organization for Needs of the Elderly Senior Service/Resource Center [address] [place] [address] [facility] [address] [place] [address] PSYCHIATRIC OUTPATIENT SERVICES [facility] Partial Hospitalization and Intensive Outpatient Program (Managed Care and Gate Only)[address] [facility] [phone] [facility] Partial Hospitalization and Outpatient Dayhe[address] [place], [place] [phone] [facility] Mental Health [place] Oym44935 [facility]. [address] [place], [place] [phone] [facility] Partial Hospitalization and Outpatient [id number] curtis Cris Fiore, [phone] Substance Abuse resources provided included: [facility] Substance Abuse Self-Helpline ([facility]) ; CRI -HELP [address]33 [facility]. [place] [address] ; [facility] [address] [facility] [address] ; [facility] Rehabilitation Program [address] [facility] [address] ; [facility]ically [facility] 400 [facility] [phone] ; [facility] 4940 [facility] [phone] ; Kady [place] [facility] 909 [facility] [address] ; [facility] Substance Abuse Helpline([facility] ; [facility] ; [facility]; [facility]; Cri[facility]Help [place]; I-ADARP Inter Agency Drug Abuse Recovery Earl Jude; [place] [facility] Fi[place]; [facility] Fiatt; [facility]; [facility], [facility]. [place]; Alcoholics Anonymous -SFV; Tb-Jdaf-Wgmfefh ; Marijuana Anonymous -SFV; Narcotics Anonymous www.na.org;
--- NOTE | 2021-10-07 19:51 | NUR ---
PT RESTING COMFORTABLY IN BED, FOOD AND DRINK PROVIDED. WILL CONTINUE TO MONITOR.
--- NOTE | 2021-10-07 23:24 | NUR ---
ptm is accepted at [facility] the care of Dr. Bajwa. Call [phone] for report
--- NOTE | 2021-10-07 23:32 | NUR ---
[facility] ETA 15 MINUTES.
[2021-10-07 23:41] VITALS: BP 132/90
--- NOTE | 2021-10-07 23:41 | NUR ---
[facility] AT BEDSIDE FOR PATIENT TRANSPORTATION TO [facility]
== END 2021-10-07 23:53 ==
LOC: ER 06:12
DX: R45.851 Suicidal ideations (principal); F23 Brief psychotic disorder; Z20.822 Contact with and (suspected) exposure to COVID-19; F20.9 Schizophrenia, unspecified; Z59.00 Homelessness unspecified; R73.9 Hyperglycemia, unspecified; F32.A Depression, unspecified; F17.200 Nicotine dependence, unspecified, uncomplicated
CPT/HCPCS: 36415; 80048-TC; 80076-TC; 81001; 85025-TC; C9803; G0480

== ENCOUNTER 2021-10-17 00:56 | Emergency (ER) | payer MEDICARE, OTHER ==
[~2021-10-17] VITALS: Ht 180.3 cm; Wt 104.3 kg
--- NOTE | 2021-10-17 01:10 | NUR ---
Xi ayala in [facility] - 10/17/21 at 0115 by FREDO Patient discharged to home in stable condition. Written and verbal after care instructions given. Patient verbalizes understanding of instruction. iv LINE
--- NOTE | 2021-10-17 01:10 | NUR ---
Patient discharged to home in stable condition. Written and verbal after care instructions given. Patient verbalizes understanding of instruction. IV line removed and pt ambulatory with steady gait.
--- NOTE | 2021-10-17 01:15 | NUR ---
PATIENT BIBSELF C/O +SI WITH PLAN TO OD. PATIENT IS A/O X 4, RR EVEN AND UNLABORED, NO SOB NOTED. PATIENT VSS, AFEBRILE. NO ACUTE DISTRESS NOTED. PATIENT AMBULATES WITH STEADY GAIT. PATIENT TAKEN TO ER BED 18, PLACED IN HOSPITAL GOWN, BELONGINGS TAKEN AND PLACED IN PATIENT LOCKER.
--- NOTE | 2021-10-17 01:25 | NUR ---
NGOZIID COLLECTED SENT TO LAB
--- NOTE | 2021-10-17 01:25 | NUR ---
URINE COLLECTED SENT TO LAB
[2021-10-17 01:58] LABS: BASOPHILS % (AUTO) 0.3 % (0.0-2.0); EOSINOPHILS % (AUTO) 1.6 % (0.0-6.0); HEMATOCRIT 47 % (39-51); HEMOGLOBIN 15.8 g/dL (13.5-17.5); LYMPHOCYTES # (AUTO) 2.8 K/uL (0.8-4.8); LYMPHOCYTES % (AUTO) 42.2 % (20.0-44.0); MEAN CORPUSCULAR HGB CONC 34 g/dl (31.0-36.0); MEAN CORPUSCULAR VOLUME 97 fL (80-96); MONOCYTES # (AUTO) 0.5 K/uL (0.1-1.30); MONOCYTES % (AUTO) 7.6 % (2.0-12.0); NEUTROPHILS # (AUTO) 3.2 K/uL (1.8-8.9); NEUTROPHILS % (AUTO) 48.3 % (43.0-81.0); PLATELET COUNT (AUTO) 185 K/uL (150-450); RED BLOOD CELL COUNT(AUTO) 4.84 MIL/uL (4.5-6.0); WHITE BLOOD COUNT (AUTO) 6.7 K/uL (4.3-11.0)
[2021-10-17 02:01] LABS: BILIRUBIN,URINE NEGATIVE (NEGATIVE); COLOR,URINE YELLOW (YELLOW); LEUKOCYTE ESTERASE ,URINE NEGATIVE (NEGATIVE); NITRITE, URINE NEGATIVE (NEGATIVE); PROTEIN,URINE NEGATIVE (NEGATIVE); UGLUCOSE NEGATIVE (NEGATIVE); UROBILINOGEN,URINE 0.2 EU/dL (0.2)
[2021-10-17 02:10] LABS: CALCIUM, SERUM 9.3 mg/dL (8.5-10.1); CARBON DIOXIDE 27 mmol/L (21-32); CHLORIDE 103 mmol/L (98-107); CREATININE 1.2 mg/dL (0.6-1.3); GLUCOSE 142 mg/dL (74-106); POTASSIUM 3.4 mmol/L (3.5-5.1); SODIUM SERUM 140 mmol/L (136-145); UREA NITROGEN, BLOOD 16 mg/dL (7-18)
[2021-10-17 02:20] LABS: ALANINE AMINOTRANSFERASE 48 U/L (12-78); ALBUMIN 4.2 g/dL (3.4-5.0); ALKALINE PHOSPHATASE 109 U/L (46-116); ASPARTATE AMINOTRANSFERASE 24 U/L (15-37); BILIRUBIN,DIRECT 0.1 mg/dL (0.0-0.2); BILIRUBIN,TOTAL 0.3 mg/dL (0.2-1.0); TOTAL PROTEIN, SERUM 7.9 g/dL (6.4-8.2)
[2021-10-17 02:21] LABS: ACETAMINOPHEN 0 ug/ml (10-30); ALCOHOL, BLOOD < 3 mg/dL (0-0)
--- NOTE | 2021-10-17 02:59 | NUR ---
FACESHEET AND CLINICALS FAXED TO [facility].
[2021-10-17 07:43] LABS: BACTERIA,URINE None seen /HPF (None Seen); RBC,URINE 0-2 /HPF (0-2); SQUAMOUS EPITHELIAL CELL,UR Rare /HPF (None Seen); WBC,URINE NONE SEEN /HPF (0-3)
--- NOTE | 2021-10-17 10:12 | NUR ---
[facility] PT ACCEPTANCE UNDER THE CARE OF DR. CORBIN NUMBER FOR REPORT [phone] EXT. [phone]
--- NOTE | 2021-10-17 10:15 | NUR ---
CALLED [facility] AND SET UP BLS TRANSPORT ETA 1037
[2021-10-17 10:21] VITALS: BP 147/77
--- NOTE | 2021-10-17 11:08 | NUR ---
PT WAS DISCHARGED TO TRANSPORTATION. PT LEFT FACILITY IN STABLE CONDITION, STEADY GAIT ABLE TO AMBULATE ON HIS OWN. TRANSPORTATION WAS GIVEN PT'S BELONGINGS.
== END 2021-10-17 11:18 ==
LOC: ER 01:04
DX: R45.851 Suicidal ideations (principal); F32.A Depression, unspecified; F20.9 Schizophrenia, unspecified; Z59.00 Homelessness unspecified; F17.200 Nicotine dependence, unspecified, uncomplicated; Z20.822 Contact with and (suspected) exposure to COVID-19
CPT/HCPCS: 36415; 80048-TC; 80076-TC; 81001; 85025-TC; C9803; G0480

== ENCOUNTER 2021-10-24 02:19 | Emergency (ER) | payer MEDICARE, OTHER ==
[~2021-10-24] VITALS: Ht 180.3 cm; Wt 104.3 kg
--- NOTE | 2021-10-24 03:00 | NUR ---
BIBSELF C/O +SI WITH NO PLAN. VOL PSYCH ADMIT TO [facility]. PT A/OX3. TOLERATING R/A WELL WITH NO SOB. AMBULATORY WITH STEADY GAIT. PT IN GOWN. BELONGINGS COLLECTED AND PLACED IN STORAGE. SAFETY MEASURES IN PLACE.
--- NOTE | 2021-10-24 03:19 | NUR ---
URINE COLLECTED AND SENT TO LAB
--- NOTE | 2021-10-24 03:21 | NUR ---
VACUUM CASTER AT PT'S BEDSIDE
--- NOTE | 2021-10-24 03:24 | NUR ---
COVID ANTIGEN SWAB COLLECTED AND SENT TO LAB
[2021-10-24 03:38] LABS: BASOPHILS % (AUTO) 0.4 % (0.0-2.0); EOSINOPHILS % (AUTO) 1.5 % (0.0-6.0); HEMATOCRIT 47 % (39-51); HEMOGLOBIN 16.3 g/dL (13.5-17.5); LYMPHOCYTES % (AUTO) 33.7 % (20.0-44.0); MEAN CORPUSCULAR HGB CONC 35 g/dl (31.0-36.0); MEAN CORPUSCULAR VOLUME 94 fL (80-96); MONOCYTES # (AUTO) 0.3 K/uL (0.1-1.30); MONOCYTES % (AUTO) 5.3 % (2.0-12.0); NEUTROPHILS # (AUTO) 3.5 K/uL (1.8-8.9); NEUTROPHILS % (AUTO) 59.1 % (43.0-81.0); PLATELET COUNT (AUTO) 188 K/uL (150-450); RED BLOOD CELL COUNT(AUTO) 5.04 MIL/uL (4.5-6.0)
[2021-10-24 03:39] LABS: BILIRUBIN,URINE NEGATIVE (NEGATIVE); COLOR,URINE YELLOW (YELLOW); LEUKOCYTE ESTERASE ,URINE NEGATIVE (NEGATIVE); NITRITE, URINE NEGATIVE (NEGATIVE); PH,URINE 6.5 (5.0-8.0); PROTEIN,URINE NEGATIVE (NEGATIVE); UGLUCOSE NEGATIVE (NEGATIVE); UROBILINOGEN,URINE 0.2 EU/dL (0.2)
[2021-10-24 03:45] LABS: CALCIUM, SERUM 8.8 mg/dL (8.5-10.1); CARBON DIOXIDE 32 mmol/L (21-32); CHLORIDE 103 mmol/L (98-107); CREATININE 1.1 mg/dL (0.6-1.3); GLUCOSE 179 mg/dL (74-106); POTASSIUM 3.2 mmol/L (3.5-5.1); SODIUM SERUM 139 mmol/L (136-145); UREA NITROGEN, BLOOD 8 mg/dL (7-18)
[2021-10-24 03:50] LABS: ALANINE AMINOTRANSFERASE 64 U/L (12-78); ALBUMIN 4.4 g/dL (3.4-5.0); ALKALINE PHOSPHATASE 122 U/L (46-116); ASPARTATE AMINOTRANSFERASE 25 U/L (15-37); BILIRUBIN,DIRECT 0.1 mg/dL (0.0-0.2); BILIRUBIN,TOTAL 0.4 mg/dL (0.2-1.0); TOTAL PROTEIN, SERUM 8.2 g/dL (6.4-8.2)
[2021-10-24 03:52] LABS: ACETAMINOPHEN 0 ug/ml (10-30)
[2021-10-24 03:53] LABS: ALCOHOL, BLOOD < 3 mg/dL (0-0)
--- NOTE | 2021-10-24 05:47 | NUR ---
clinicals sent to [facility] intake
[2021-10-24 07:06] LABS: BACTERIA,URINE None seen /HPF (None Seen); SQUAMOUS EPITHELIAL CELL,UR None Seen /HPF (None Seen); WBC,URINE 0-2 /HPF (0-3)
[2021-10-24 08:06] VITALS: BP 136/91
--- NOTE | 2021-10-24 08:11 | NUR ---
TRANSPORT ETA 0900 PER GAMALIEL ARIAS.
--- NOTE | 2021-10-24 09:30 | NUR ---
PICKED UP BY GAMALIEL DUPREE IN STABLE CONDITION
== END 2021-10-24 10:00 ==
LOC: ER 02:28
DX: R45.851 Suicidal ideations (principal); Z59.00 Homelessness unspecified; Z20.822 Contact with and (suspected) exposure to COVID-19; F17.200 Nicotine dependence, unspecified, uncomplicated; F20.9 Schizophrenia, unspecified
CPT/HCPCS: 36415; 80048-TC; 80076-TC; 81001; 85025-TC; C9803; G0480

== ENCOUNTER 2021-11-14 05:46 | Emergency (ER) | payer MEDICARE, OTHER ==
[~2021-11-14] VITALS: Ht 172.7 cm; Wt 72.6 kg
--- NOTE | 2021-11-14 05:55 | NUR ---
Called for triage, not in waiting room.
--- NOTE | 2021-11-14 06:16 | NUR ---
Called for tramehran, not in waiting room
--- NOTE | 2021-11-14 06:32 | NUR ---
URINE COLLECTED SENT TO LAB
--- NOTE | 2021-11-14 06:32 | NUR ---
NGOZIID COLLECTED SENT TO LAB
--- NOTE | 2021-11-14 06:32 | NUR ---
PATIENT BIBSELF C/O +SI, NO PLAN, VOL PSYCH ADMIT. PATIENT IS A/O X 4, RR EVEN AND UNLABORED NO SOB NOTED. PATIENT VSS. PATIENT TAKEN TO ER BED 18, WANDED BELONGINGS TAKEN, PLACED IN HOSPITAL GOWN. WILL CONTINUE TO MONITOR.
[2021-11-14 07:03] LABS: BASOPHILS % (AUTO) 0.6 % (0.0-2.0); EOSINOPHILS % (AUTO) 0.7 % (0.0-6.0); HEMATOCRIT 46 % (39-51); LYMPHOCYTES # (AUTO) 1.7 K/uL (0.8-4.8); LYMPHOCYTES % (AUTO) 34.6 % (20.0-44.0); MEAN CORPUSCULAR HGB CONC 35 g/dl (31.0-36.0); MEAN CORPUSCULAR VOLUME 94 fL (80-96); MONOCYTES # (AUTO) 0.4 K/uL (0.1-1.30); MONOCYTES % (AUTO) 7.3 % (2.0-12.0); NEUTROPHILS # (AUTO) 2.8 K/uL (1.8-8.9); NEUTROPHILS % (AUTO) 56.8 % (43.0-81.0); PLATELET COUNT (AUTO) 194 K/uL (150-450); RED BLOOD CELL COUNT(AUTO) 4.94 MIL/uL (4.5-6.0)
[2021-11-14 07:18] LABS: ALANINE AMINOTRANSFERASE 47 U/L (12-78); ALBUMIN 4.5 g/dL (3.4-5.0); ALCOHOL, BLOOD < 3 mg/dL (0-0); ALKALINE PHOSPHATASE 110 U/L (46-116); ASPARTATE AMINOTRANSFERASE 25 U/L (15-37); BILIRUBIN,DIRECT 0.1 mg/dL (0.0-0.2); BILIRUBIN,TOTAL 0.4 mg/dL (0.2-1.0); CARBON DIOXIDE 29 mmol/L (21-32); CHLORIDE 104 mmol/L (98-107); CREATININE 1.1 mg/dL (0.6-1.3); GLUCOSE 141 mg/dL (74-106); POTASSIUM 3.4 mmol/L (3.5-5.1); SODIUM SERUM 142 mmol/L (136-145); TOTAL PROTEIN, SERUM 8.3 g/dL (6.4-8.2); UREA NITROGEN, BLOOD 8 mg/dL (7-18)
[2021-11-14 07:19] LABS: ACETAMINOPHEN 0 ug/ml (10-30)
[2021-11-14 07:20] LABS: BILIRUBIN,URINE NEGATIVE (NEGATIVE); LEUKOCYTE ESTERASE ,URINE NEGATIVE (NEGATIVE); NITRITE, URINE NEGATIVE (NEGATIVE); PROTEIN,URINE NEGATIVE (NEGATIVE); UGLUCOSE NEGATIVE (NEGATIVE); UROBILINOGEN,URINE 0.2 EU/dL (0.2)
[2021-11-14 07:25] LABS: COLOR,URINE STRAW (YELLOW)
[2021-11-14 08:07] LABS: RBC,URINE 0-2 /HPF (0-2); WBC,URINE 0-2 /HPF (0-3)
[2021-11-14 08:08] LABS: BACTERIA,URINE Rare /HPF (None Seen); SQUAMOUS EPITHELIAL CELL,UR Rare /HPF (None Seen)
--- NOTE | 2021-11-14 09:27 | NUR ---
faxed clinicals to nahid sm[facility]
--- NOTE | 2021-11-14 10:17 | NUR ---
SS Note: Pt. Is a 55-year-old male who demonstrates adequate insight to the reason for hospitalization. Per pt., he presents to the ER for medical clearance for psych admission. Pt. was oriented x3, alert, and was hardly cooperative. During interview, pt. was capable of following directions and appeared unkempt. Pt.'s speech was at a normal rate and pt.'s mood was elevated. Pt. reported no hx of mental health, substance abuse, pt. denies homicidal ideation. Pt. denies auditory hallucinations, visual hallucinations, paranoia, or delusions. SW explored pt.'s living situation. Per pt., he has been homeless for many years. SW provided pt. with halfway resources. Pt. refused to answer any further questions. Pt. would say "I don't know" to every other question. Plan: MARIANNE provided available resources and pt. accepted. Clinicals will be faxed over to [facility].
--- NOTE | 2021-11-14 10:30 | NUR ---
Followed-up with Clyde. Per Duane, nursing sup will review pt.'s packet.
--- NOTE | 2021-11-14 10:52 | NUR ---
Faxed over COVID result to [facility].
--- NOTE | 2021-11-14 12:30 | NUR ---
LUNCH TRAY PROVIDED, TOLERATED WELL
--- NOTE | 2021-11-14 12:41 | NUR ---
Followed-up with Katty. Still waiting for feedback from Nursing sup.
--- NOTE | 2021-11-14 14:51 | NUR ---
Per Ciera, waiting for discharges from [facility].
--- NOTE | 2021-11-14 22:08 | NUR ---
PT ACCEPTED TO [facility] BY DR BO RN [phone] EXT [phone] AT 2300
--- NOTE | 2021-11-14 22:38 | NUR ---
[facility] ETA 0015 HOURS
--- NOTE | 2021-11-15 00:11 | NUR ---
REPORT GIVEN TO FARA RAND FOR CONTINUATION OF CARE.
--- NOTE | 2021-11-15 00:37 | NUR ---
[facility] ETA 25-30 MIN
--- NOTE | 2021-11-15 01:30 | NUR ---
PATIENT TRANSFERRED TO [facility]. REPORT GIVEN TO EMT.
--- NOTE | 2021-11-15 01:34 | NUR ---
[facility] AT BEDSIDE FOT TRANSPORT TO [facility].
[2021-11-15 02:46] VITALS: BP 139/72
== END 2021-11-15 02:47 ==
LOC: ER 05:47
DX: R45.851 Suicidal ideations (principal); Z59.00 Homelessness unspecified; F20.9 Schizophrenia, unspecified; F32.A Depression, unspecified; Z20.822 Contact with and (suspected) exposure to COVID-19
CPT/HCPCS: 36415; 80048-TC; 80076-TC; 81001; 85025-TC; C9803; G0480

== ENCOUNTER 2021-11-25 01:13 | Emergency (ER) | payer MEDICARE, OTHER ==
[~2021-11-25] VITALS: Ht 175.3 cm; Wt 83.9 kg
--- NOTE | 2021-11-25 04:02 | NUR ---
PRESENTED TO THE ER FOR C/O SI, REQUESTING VOLUNTARY PSYCH ADMISSION AT [facility]. PT A, OX4. AMBULATORY WITH STEADY GAITS TO THE BATHROOM. URINE SAMPLE OBTAINED. COVVID SWAB COLLECTED. PT WAS GOWNED UP. ALL BELONGINGS TAKEN AWAY AND SECURITY WAS CALLED FOR WANDING. SI PRECAUTION IMPLEMENTED. WILL CONTINUE TO MONITOR.
--- NOTE | 2021-11-25 04:02 | NUR ---
URINE COLLECTED AND SENT TO LAB
[2021-11-25 04:28] LABS: BASOPHILS % (AUTO) 0.8 % (0.0-2.0); EOSINOPHILS % (AUTO) 1.5 % (0.0-6.0); HEMATOCRIT 45 % (39-51); HEMOGLOBIN 15.7 g/dL (13.5-17.5); LYMPHOCYTES % (AUTO) 37.7 % (20.0-44.0); MEAN CORPUSCULAR HGB CONC 35 g/dl (31.0-36.0); MEAN CORPUSCULAR VOLUME 94 fL (80-96); MONOCYTES # (AUTO) 0.4 K/uL (0.1-1.30); MONOCYTES % (AUTO) 6.7 % (2.0-12.0); NEUTROPHILS # (AUTO) 2.8 K/uL (1.8-8.9); NEUTROPHILS % (AUTO) 53.3 % (43.0-81.0); PLATELET COUNT (AUTO) 192 K/uL (150-450); RED BLOOD CELL COUNT(AUTO) 4.82 MIL/uL (4.5-6.0); WHITE BLOOD COUNT (AUTO) 5.3 K/uL (4.3-11.0)
[2021-11-25 04:38] LABS: BILIRUBIN,URINE NEGATIVE (NEGATIVE); COLOR,URINE YELLOW (YELLOW); LEUKOCYTE ESTERASE ,URINE NEGATIVE (NEGATIVE); NITRITE, URINE NEGATIVE (NEGATIVE); PH,URINE 5.5 (5.0-8.0); PROTEIN,URINE NEGATIVE (NEGATIVE); UGLUCOSE NEGATIVE (NEGATIVE); UROBILINOGEN,URINE 0.2 EU/dL (0.2)
[2021-11-25 04:58] LABS: ALANINE AMINOTRANSFERASE 53 U/L (12-78); ALBUMIN 4.2 g/dL (3.4-5.0); ALKALINE PHOSPHATASE 102 U/L (46-116); ASPARTATE AMINOTRANSFERASE 22 U/L (15-37); BILIRUBIN,DIRECT 0.1 mg/dL (0.0-0.2); BILIRUBIN,TOTAL 0.4 mg/dL (0.2-1.0); CALCIUM, SERUM 9.4 mg/dL (8.5-10.1); CARBON DIOXIDE 33 mmol/L (21-32); CHLORIDE 103 mmol/L (98-107); CREATININE 1.1 mg/dL (0.6-1.3); GLUCOSE 123 mg/dL (74-106); POTASSIUM 3.9 mmol/L (3.5-5.1); SODIUM SERUM 142 mmol/L (136-145); TOTAL PROTEIN, SERUM 7.9 g/dL (6.4-8.2); UREA NITROGEN, BLOOD 13 mg/dL (7-18)
[2021-11-25 05:03] LABS: ACETAMINOPHEN < 2 ug/ml (10-30); ALCOHOL, BLOOD < 3 mg/dL (0-0)
--- NOTE | 2021-11-25 06:12 | NUR ---
FACESHEET AND CLINICALS FAXED TO [facility].
--- NOTE | 2021-11-25 09:45 | NUR ---
SS consult: SS Consult requested for SI, & homelessness. The pt. is a 55 year-old Black male patient who came into ED due to: suicidal ideation per EMR. Upon SS consult, the pt. is Alert & Oriented x 4 and makes avoidant eye contact. The pt. appears disheveled with depressed mood & flat affect. Pt.s speech is slow & clear. Per pt. she states he is having thoughts of suicide with plan to no plan. Pt. denies HI and denies hallucinations. SW explored pt.s living situation. Patient states he is experiencing homelessness for the past [address] SW provided resources for homelessness and pt. accepted them. SW explored pt.s mental health Hx. Patient denies ever being diagnosed with a mental illness and denies being prescribed medication for his mental health. SW provided mental health resources. SW explored pt.s drug & ETOH use. Pt. denies drug or alcohol use. Per pt. he is ambulatory and independent with all his ADLs. SW explored pt.s support system. Pt. states his family is and he has no one else. Plan: Pt. was referred [facility] for voluntary psychiatric treatment as requested by patient. Pt. was provided with mental health & homeless resources and pt. accepted them. Pt. signed homeless waiver and it was placed in the chart. Year-round shelters: [facility] [address] [place], [place] [id number] ; [facility] [place] [address] [place] [address]; [facility] Ldsnwbr8948 [facility]. [facility] [address] Hygiene: [facility] [employer]: [address] [place] ; [facility] [address] [facility] ; [facility] [address]308 Jabari [address] . Food Resources: [place] [employer] [facility] at [facility]- [address] [place]; Meet Each Need with Dignity (MEND) [address] [place]; [facility] 8778 [facility] [place]; [facility] 2896 [place] Tete Hand. Mental Health resources provided: [facility] [address] [place], [place] [address] ; [facility] [address] [facility] [address], [place] [address] ; [facility] [address] [place], [place] [phone] ; [facility] [address] [place], [place] [address] Healthcare Clinics: [facility] [address]1 [facility], [address] [place]. [place] ; [facility] [address] [facility] [address] [place] [address]; [facility] [address] [place] [address] [phone] Counseling--Outpatient [facility] [address] [facility], [place] [address] (Specializes in in-depth psychotherapy for emotional distress: anxiety, depression, interpersonal conflicts, life transitions, childhood abuse) [facility] [address] [place] [address] (Assist with solving problem marital difficulties, separation & divorce, aging parents, & grief, chronic & terminal illness) [facility] [address] [place] [address] (Deal with loss & grief, anxiety, marital difficulties) Homebound/Mental Health Services [address] Tush[address] [facility], [address] [place], [place] [phone] (Provide in-home mental services to people who are incapable of leaving their homes) Organization for Needs of the Elderly Senior Service/Resource Center [address] [facility] [place] [address] [facility] 6514 [facility] [place]. [place], [place] [phone] PSYCHIATRIC OUTPATIENT SERVICES [facility] Partial Hospitalization and Intensive Outpatient Program (Managed Care and [place] Only)[address] [facility] [phone] [facility] Partial Hospitalization and Outpatient [id number] [place], [place] [phone] JABARI JONES [facility] Fwl44501 [facility]. [address] [place], [place] [phone] [facility] Partial Hospitalization and Outpatient Orkkjva98024 Emelialejandra [facility] Jabari oJnes, [phone] Substance Abuse resources provided included: [facility] Substance Abuse Self-Helpline ([facility]) ; CRI -HELP [address]91 [facility]. [place] [address] ; [facility] 34662 [facility] [address] ; [facility] [address] [address] ; [facility] [phone] ; [facility] 4940 [facility] [phone] ; [facility] 909 [facility] [phone] ; [facility] Substance Abuse Helpline([facility])-[facility] ; [facility] ; [facility]; [facility] [place]; C[facility]Help [place]; I-ADARP Inter [facility] Jabari Jones; [facility]; [facility] [place]; [facility] Mark Dinh; Alcoholics Anonymous -SFV; Ingris ; Marijuana Anonymous -SFV; Narcotics Anonymous www.[email or web address];
--- NOTE | 2021-11-25 09:57 | NUR ---
ACCEPTED AT [facility] UNDER DR. TRAMMELL. [phone] FOR REPORT.
--- NOTE | 2021-11-25 09:58 | NUR ---
[facility]ED [facility] AND [facility]LS TRANSPORT ETA 1137
--- NOTE | 2021-11-25 12:08 | NUR ---
Transfer Information: Transfer to: [facility] Accepted by: Ally Report to: Nevaeh RAND Condition on Tx: Cooperative/Stable. VSS Transporting Agency: [facility] EMT: Desirae vu [id number]
[2021-11-25 12:12] VITALS: BP 138/80
== END 2021-11-25 12:12 ==
LOC: ER 01:14
DX: R45.851 Suicidal ideations (principal); Z59.00 Homelessness unspecified; F17.200 Nicotine dependence, unspecified, uncomplicated; R03.0 Elevated blood-pressure reading, without diagnosis of hypertension; F20.9 Schizophrenia, unspecified; Z20.822 Contact with and (suspected) exposure to COVID-19; F32.A Depression, unspecified
CPT/HCPCS: 36415; 80048-TC; 80076-TC; 85025-TC; C9803; G0480

== ENCOUNTER 2021-12-03 08:53 | Emergency (ER) | payer MEDICARE, OTHER ==
[~2021-12-03] VITALS: Ht 175.3 cm; Wt 83.9 kg
--- NOTE | 2021-12-03 09:01 | NUR ---
WANDED BY SECURITY
--- NOTE | 2021-12-03 09:09 | NUR ---
COVID SWAB DONE AND SENT TO LAB
--- NOTE | 2021-12-03 09:09 | NUR ---
URINE SAMPLE COLLECTED
[2021-12-03 09:28] LABS: BASOPHILS % (AUTO) 0.6 % (0.0-2.0); HEMATOCRIT 46 % (39-51); HEMOGLOBIN 15.8 g/dL (13.5-17.5); LYMPHOCYTES # (AUTO) 1.8 K/uL (0.8-4.8); LYMPHOCYTES % (AUTO) 25.9 % (20.0-44.0); MEAN CORPUSCULAR HGB CONC 35 g/dl (31.0-36.0); MEAN CORPUSCULAR VOLUME 95 fL (80-96); MONOCYTES # (AUTO) 0.5 K/uL (0.1-1.30); MONOCYTES % (AUTO) 6.8 % (2.0-12.0); NEUTROPHILS # (AUTO) 4.5 K/uL (1.8-8.9); NEUTROPHILS % (AUTO) 65.7 % (43.0-81.0); PLATELET COUNT (AUTO) 212 K/uL (150-450); RED BLOOD CELL COUNT(AUTO) 4.82 MIL/uL (4.5-6.0); WHITE BLOOD COUNT (AUTO) 6.9 K/uL (4.3-11.0)
[2021-12-03 09:30] LABS: BILIRUBIN,URINE NEGATIVE (NEGATIVE); COLOR,URINE YELLOW (YELLOW); LEUKOCYTE ESTERASE ,URINE NEGATIVE (NEGATIVE); NITRITE, URINE NEGATIVE (NEGATIVE); PROTEIN,URINE NEGATIVE (NEGATIVE); UGLUCOSE NEGATIVE (NEGATIVE)
[2021-12-03 10:28] LABS: ALANINE AMINOTRANSFERASE 59 U/L (12-78); ALBUMIN 4.6 g/dL (3.4-5.0); ALKALINE PHOSPHATASE 116 U/L (46-116); ASPARTATE AMINOTRANSFERASE 28 U/L (15-37); BILIRUBIN,DIRECT 0.2 mg/dL (0.0-0.2); CALCIUM, SERUM 9.5 mg/dL (8.5-10.1); GLUCOSE 104 mg/dL (74-106); TOTAL PROTEIN, SERUM 8.7 g/dL (6.4-8.2); UREA NITROGEN, BLOOD 16 mg/dL (7-18)
[2021-12-03 10:30] LABS: ACETAMINOPHEN < 10 ug/ml (10-30); ALCOHOL, BLOOD < 3 mg/dL (0-0)
[2021-12-03 10:33] LABS: CARBON DIOXIDE 29 mmol/L (21-32); CHLORIDE 105 mmol/L (98-107); POTASSIUM 3.5 mmol/L (3.5-5.1); SODIUM SERUM 141 mmol/L (136-145)
--- NOTE | 2021-12-03 10:37 | NUR ---
SS Note: SS consult requested for medical clearance. Pt. Is a 55-year-old Black male. Per EMR, pt. was brought in for suicidal ideation. Pt. presents alert and oriented x4 (self, place, time, situation). Pt. appeared unkempt, made appropriate eye-contact, and was cooperative during interview. Pt. reported no hx of mental health or substance abuse. Pt. denies homicidal ideation. Pt. reported no auditory hallucinations, visual hallucinations, paranoia, or delusions. SW explored pt.'s living situation. Per pt., he has been homeless for many years. Pt. requested usp resources and SW provided pt. with a packet. Pt. stated he has been having suicidal ideation for couple days with no plan. Pt. expressed that he wants to go to [place] and not [place]. Once pt. is medically cleared, SW will fax clinicals over to [facility].
--- NOTE | 2021-12-03 11:00 | NUR ---
Faxed Clinicals to [place] [fax: [phone]].
[2021-12-03 11:14] LABS: RBC,URINE 0-2 /HPF (0-2)
[2021-12-03 11:15] LABS: BACTERIA,URINE Rare /HPF (None Seen); SQUAMOUS EPITHELIAL CELL,UR None Seen /HPF (None Seen); WBC,URINE NONE SEEN /HPF (0-3)
--- NOTE | 2021-12-03 14:18 | NUR ---
SPOKE WITH [facility], PATIENT WILL BE CATALOGUE MAKER (TRANSPORTATION) AT [phone]. PRIMARY NURSE AWARE.
--- NOTE | 2021-12-03 14:25 | NUR ---
PT REFUSES [facility] JABARI JONES TRANSFER AND WANTS TO WAIT FOR [place]
--- NOTE | 2021-12-03 15:29 | NUR ---
Pt. changed his mind is willing to go to [facility]. MARIANNE updated Tevin from intake. Pt. is accepted to [facility] under Dr. Bajwa. Number to report: [phone]. Tevin will call back with
--- NOTE | 2021-12-03 16:23 | NUR ---
accepted by [facility] the staff from [facility] -came and picked up the patient.
[2021-12-03 16:25] VITALS: BP 161/102
== END 2021-12-03 16:25 ==
LOC: ER 09:05
DX: R45.851 Suicidal ideations (principal); Z59.00 Homelessness unspecified; F20.9 Schizophrenia, unspecified; I10 Essential (primary) hypertension; Z20.822 Contact with and (suspected) exposure to COVID-19
CPT/HCPCS: 36415; 80048-TC; 80076-TC; 81001; 85025-TC; C9803; G0480

== ENCOUNTER 2021-12-11 02:58 | Emergency (ER) | payer MEDICARE, OTHER ==
[~2021-12-11] VITALS: Ht 177.8 cm; Wt 90.7 kg
--- NOTE | 2021-12-11 03:20 | NUR ---
PATIENT CALLED TO TRIAGE NO ANSWER
--- NOTE | 2021-12-11 03:45 | NUR ---
PATIENT CALLED TO TRIAGE, NOT IN WAITING ROOM.
--- NOTE | 2021-12-11 05:15 | NUR ---
JOHN BABCOCK C/O +SI -H/I WANTING VOL PSYCH ADMIT. PATIENT IS A/O X 4 RR EVEN AND UNLABORED, NO SOB NOTED. PATIENT TAKEN TO ER BED 18, RN AND SECURITY AT BEDSIDE, PT WANDED. PT BELONGINGS TAKEN AND PALCED IN LOCKER, PT PLACED IN HOSPITAL GOWN. WILL CONTINUE TO MONITOR.
--- NOTE | 2021-12-11 05:39 | NUR ---
urine collected sent to lab
--- NOTE | 2021-12-11 05:39 | NUR ---
isauraid collected sent to lab
[2021-12-11 06:33] LABS: BASOPHILS % (AUTO) 0.5 % (0.0-2.0); EOSINOPHILS % (AUTO) 1.8 % (0.0-6.0); HEMATOCRIT 45 % (39-51); HEMOGLOBIN 15.5 g/dL (13.5-17.5); LYMPHOCYTES # (AUTO) 1.7 K/uL (0.8-4.8); LYMPHOCYTES % (AUTO) 32.6 % (20.0-44.0); MEAN CORPUSCULAR HGB CONC 35 g/dl (31.0-36.0); MEAN CORPUSCULAR VOLUME 95 fL (80-96); MONOCYTES # (AUTO) 0.4 K/uL (0.1-1.30); MONOCYTES % (AUTO) 7.7 % (2.0-12.0); NEUTROPHILS # (AUTO) 3.1 K/uL (1.8-8.9); NEUTROPHILS % (AUTO) 57.4 % (43.0-81.0); PLATELET COUNT (AUTO) 201 K/uL (150-450); WHITE BLOOD COUNT (AUTO) 5.3 K/uL (4.3-11.0)
[2021-12-11 07:47] LABS: BILIRUBIN,URINE NEGATIVE (NEGATIVE); COLOR,URINE YELLOW (YELLOW); LEUKOCYTE ESTERASE ,URINE NEGATIVE (NEGATIVE); NITRITE, URINE NEGATIVE (NEGATIVE); PROTEIN,URINE NEGATIVE (NEGATIVE); UGLUCOSE NEGATIVE (NEGATIVE); UROBILINOGEN,URINE 0.2 EU/dL (0.2)
[2021-12-11 07:51] LABS: CALCIUM, SERUM 9.2 mg/dL (8.5-10.1); CARBON DIOXIDE 30 mmol/L (21-32); CHLORIDE 103 mmol/L (98-107); CREATININE 1.1 mg/dL (0.6-1.3); GLUCOSE 105 mg/dL (74-106); POTASSIUM 3.6 mmol/L (3.5-5.1); SODIUM SERUM 139 mmol/L (136-145); UREA NITROGEN, BLOOD 10 mg/dL (7-18)
[2021-12-11 07:57] LABS: ALANINE AMINOTRANSFERASE 62 U/L (12-78); ALBUMIN 4.2 g/dL (3.4-5.0); ALCOHOL, BLOOD < 3 mg/dL (0-0); ALKALINE PHOSPHATASE 110 U/L (46-116); ASPARTATE AMINOTRANSFERASE 30 U/L (15-37); BILIRUBIN,DIRECT 0.1 mg/dL (0.0-0.2); BILIRUBIN,TOTAL 0.5 mg/dL (0.2-1.0); TOTAL PROTEIN, SERUM 8.3 g/dL (6.4-8.2)
--- NOTE | 2021-12-11 07:58 | NUR ---
ASSUME PATIENT CARE, RESTING IN BED. STABLE VITALS. PROVIDED W/ BREAKFAST TRAY.
[2021-12-11 08:01] LABS: ACETAMINOPHEN 0 ug/ml (10-30)
[2021-12-11 10:07] LABS: BACTERIA,URINE Rare /HPF (None Seen); RBC,URINE 0-2 /HPF (0-2); SQUAMOUS EPITHELIAL CELL,UR Few /HPF (None Seen); WBC,URINE 0-2 /HPF (0-3)
--- NOTE | 2021-12-11 11:41 | NUR ---
MARIANNE faxed clinicals to [facility] [[address] [place], [place] [address] [place] [address] COMLINK TEL:[phone] fax:[phone]] for voluntary psychiatric treatment.
[2021-12-11 11:49] VITALS: BP 131/89
--- NOTE | 2021-12-11 12:49 | NUR ---
SS consult: SS Consult requested for SI. The pt. is a 55 year-old Black male patient who came in for SI. Upon SS consult, the pt. is Alert & Oriented x 3 and makes good eye contact. The pt. appears unkempt with anxious mood & affect. Pt.'s has a lisp. Per pt. he has been diagnosed with Schizophrenia and depression in the past. Per pt. is not on any medication currently. Pt. stated he is currently experiencing thoughts of suicide and has no plan at this time. Pt. denies current HI and states he has current auditory and visual hallucinations. Pt. is responding to internal stimuli. SW explored pt.'s living situation. Patient states he is currently experiencing homelessness and could not state how long he has been homeless. SW explored pt.'s drug & ETOH use. Pt. denies any drug or alcohol use. Per pt. he is ambulatory and independent with all his ADL's. SW explored pt.'s support system. Pt. states he has no support system. Pt. reports he receives SSI and food stamps. Plan: SW was referred pt. to [facility] for inpatient psychiatric treatment. MARIANNE provided pt. with homeless and mental health resources, and he accepted them. Pt. signed homeless waiver and it was place dint he pt.'s chart. Year-round shelters: [facility] [place] [address] [place], [place] [phone] ; [facility] [place] [address] [place] [address]; [facility] Rrrsyky5970 [facility]. [facility] [address] Hygiene: [facility]: [address] [place] ; [facility] [address] [facility] ; [facility] 3576 Jab[address] . Food Resources: [place] [facility] at [facility]- [address] [place]; Meet Each Need with Dignity (MEND) [address] [place]; [facility] Food [facility] [address] [facility]; [facility] [address]483 [address] Hand. Mental Health resources provided: [facility] [address] [place], [place] [address] ; [facility] 42753 Domin[address] [facility] [address], [place], [place] [phone] ; [facility] [address] [place], [place] [phone] ; [facility] [address] [place], [place] [address] Healthcare Clinics: [facility] [address] [facility] [place], [address] [place]. [place] ; [facility] 6801 [facility] [address] [place] [address]; [facility] [address] [facility] [place] [address] [phone] Counseling--Outpatient [facility] 4419 [facility], [place] [address] (Specializes in in-depth psychotherapy for emotional distress: anxiety, depression, interpersonal conflicts, life transitions, childhood abuse) [facility] [address] [place] [address] (Assist with solving problem marital difficulties, separation & divorce, aging parents, & grief, chronic & terminal illness) [facility] [address] [place] [address] (Deal with loss & grief, anxiety, marital difficulties) Homebound/Mental Health Services [address] [facility], [address] [place], [place] [id number] (Provide in-home mental services to people who are incapable of leaving their homes) Organization for Needs of the Elderly Senior Service/Resource Center [address]188 Tushar [facility] [place] [address] [facility] 6514 [facility]. [place], [place] [phone] PSYCHIATRIC OUTPATIENT SERVICES [facility] Partial Hospitalization and Intensive Outpatient Program (Managed Care and [place] Only)[address] [facility] [phone] [facility] Partial Hospitalization and Outpatient [address] [place], [place] [phone] JABARI JONES [facility] Yyr89897 [facility]. [address] [place], [place] [phone] [facility] Partial Hospitalization and Outpatient Mzcwhmi78758 Emelialejandra [facility] Jabari Jones, [phone] Substance Abuse resources provided included: [facility] Substance Abuse Self-Helpline ([facility]) ; CRI -HELP 46234 [facility]. [place] [address] ; [facility] 64962 [facility] [address] ; [facility] [address] Blvd[facility]mhurst Hospital [facility] [address] ; [facility] 400 [facility] [address] ; [facility] 4940 [facility] [address] ; [facility] 909 [facility] [phone] ; [place] [facility] Substance Abuse Helpline([facility])-[place] [facility] ; [facility] ; [facility] St[place]; [facility]; C[facility] [place]; I-ADARP Inter Agency Drug Abuse Recovery Jabari Jones; [place] [facility] Sylmoody hospital; [facility]; [facility]. Mark Dinh; Alcoholics Anonymous -SFV; Ingris ; Marijuana Anonymous -SFV; Narcotics Anonymous www.na.org;
--- NOTE | 2021-12-11 14:46 | NUR ---
[facility] stated no update from [facility] at this time.
--- NOTE | 2021-12-11 20:23 | NUR ---
CALLED [facility] PER SHELLI STILL AWAITING FEEDBACK FROM [facility]
--- NOTE | 2021-12-12 02:14 | NUR ---
PT IS ACCEPTED AT COUNTS INCLUDE 234 BEDS AT THE [facility] UNDER THE CARE OF DR. ALVARENGA CALL [phone] EXT. [phone] FOR REPORT.
--- NOTE | 2021-12-12 02:17 | NUR ---
[facility] ETA 75-90 MIN
--- NOTE | 2021-12-12 02:19 | NUR ---
report given to amarilis palma at [facility]
--- NOTE | 2021-12-12 04:15 | NUR ---
[facility]. PT IS INSTABLE CONDITION. REPORT GIVEN
== END 2021-12-12 04:20 ==
LOC: ER 03:00
DX: R45.851 Suicidal ideations (principal); Z20.822 Contact with and (suspected) exposure to COVID-19; Z59.00 Homelessness unspecified; F20.9 Schizophrenia, unspecified
CPT/HCPCS: 36415; 80048-TC; 80076-TC; 81001; 85025-TC; C9803; G0480

== ENCOUNTER 2022-01-01 15:07 | Emergency (ER) | payer MEDICARE, OTHER ==
[~2022-01-01] VITALS: Ht 177.8 cm; Wt 91.2 kg
--- NOTE | 2022-01-01 16:13 | NUR ---
SEEN BY NUNO HERNANDEZ,BLOOD DRAWN FOR LABS,COVID SWAB OBTAINED AND GIVEN TO ADRI, REQUESTED TO GET URINE SAMPLE
[2022-01-01 16:29] LABS: BASOPHILS % (AUTO) 0.5 % (0.0-2.0); EOSINOPHILS % (AUTO) 3.2 % (0.0-6.0); HEMATOCRIT 44 % (39-51); HEMOGLOBIN 15.2 g/dL (13.5-17.5); LYMPHOCYTES # (AUTO) 2.5 K/uL (0.8-4.8); LYMPHOCYTES % (AUTO) 41.7 % (20.0-44.0); MEAN CORPUSCULAR HGB CONC 34 g/dl (31.0-36.0); MEAN CORPUSCULAR VOLUME 95 fL (80-96); MONOCYTES # (AUTO) 0.6 K/uL (0.1-1.30); MONOCYTES % (AUTO) 10.1 % (2.0-12.0); NEUTROPHILS # (AUTO) 2.7 K/uL (1.8-8.9); NEUTROPHILS % (AUTO) 44.5 % (43.0-81.0); PLATELET COUNT (AUTO) 194 K/uL (150-450); RED BLOOD CELL COUNT(AUTO) 4.65 MIL/uL (4.5-6.0)
[2022-01-01 17:02] LABS: CALCIUM, SERUM 9.2 mg/dL (8.5-10.1); CARBON DIOXIDE 28 mmol/L (21-32); CHLORIDE 104 mmol/L (98-107); CREATININE 1.1 mg/dL (0.6-1.3); GLUCOSE 99 mg/dL (74-106); POTASSIUM 3.6 mmol/L (3.5-5.1); SODIUM SERUM 138 mmol/L (136-145); UREA NITROGEN, BLOOD 9 mg/dL (7-18)
[2022-01-01 17:06] LABS: ALANINE AMINOTRANSFERASE 60 U/L (12-78); ALBUMIN 4.1 g/dL (3.4-5.0); ALCOHOL, BLOOD < 3 mg/dL (0-0); ALKALINE PHOSPHATASE 118 U/L (46-116); ASPARTATE AMINOTRANSFERASE 29 U/L (15-37); BILIRUBIN,DIRECT 0.1 mg/dL (0.0-0.2); BILIRUBIN,TOTAL 0.5 mg/dL (0.2-1.0); TOTAL PROTEIN, SERUM 7.9 g/dL (6.4-8.2)
[2022-01-01 17:07] LABS: ACETAMINOPHEN 0 ug/ml (10-30)
[2022-01-01 17:38] LABS: BILIRUBIN,URINE NEGATIVE (NEGATIVE); COLOR,URINE YELLOW (YELLOW); LEUKOCYTE ESTERASE ,URINE NEGATIVE (NEGATIVE); NITRITE, URINE NEGATIVE (NEGATIVE); PROTEIN,URINE NEGATIVE (NEGATIVE); UGLUCOSE NEGATIVE (NEGATIVE); UROBILINOGEN,URINE 0.2 EU/dL (0.2)
[2022-01-01 17:51] LABS: BACTERIA,URINE None seen /HPF (None Seen); SQUAMOUS EPITHELIAL CELL,UR 0-2 /HPF (None Seen); WBC,URINE 0-2 /HPF (0-3)
--- NOTE | 2022-01-01 21:30 | NUR ---
CLINICALS FAXED TO [facility]
--- NOTE | 2022-01-01 23:05 | NUR ---
TRANSFER INFO: NATASHA ARIAS, ACCEPTED BY DR DR CORBIN, RN FOR REPORT [phone] UNIT 2, [facility] ETA 0030
--- NOTE | 2022-01-02 00:56 | NUR ---
REPORT GIVEN TO VENANCIO ALSTON RN FOR SHAWANDA
--- NOTE | 2022-01-02 01:15 | NUR ---
PT PICKED UP BY [facility] INSTABLE CONDITION/ BELONGINGS WITH PATIENT.
[2022-01-02 01:16] VITALS: BP 164/94
== END 2022-01-02 01:16 ==
LOC: ER 15:16
DX: R45.851 Suicidal ideations (principal); F20.9 Schizophrenia, unspecified; R31.9 Hematuria, unspecified; Z59.01 Sheltered homelessness; Z20.822 Contact with and (suspected) exposure to COVID-19; F17.210 Nicotine dependence, cigarettes, uncomplicated; R03.0 Elevated blood-pressure reading, without diagnosis of hypertension
CPT/HCPCS: 36415; 80048-TC; 80076-TC; 81001; 85025-TC; C9803; G0480

== ENCOUNTER 2022-01-10 07:32 | Emergency (ER) | payer MEDICARE, OTHER ==
[~2022-01-10] VITALS: Ht 167.6 cm; Wt 77.1 kg
--- NOTE | 2022-01-10 07:55 | NUR ---
CAME IN FOR DEPRESSION. "Depressed-I want to go to [facility]". TO ER BED 18, HOOKED TO MONITOR, CHANGED TO HOSP GOWN, WARM BLANKET PROVIDED. AWAITING MD SPENCER
--- NOTE | 2022-01-10 07:58 | NUR ---
RAPID COVID SWAB AND URINE SAMPLE COLLECTED AND SENT TO LAB
[2022-01-10 08:12] LABS: BILIRUBIN,URINE NEGATIVE (NEGATIVE); COLOR,URINE YELLOW (YELLOW); LEUKOCYTE ESTERASE ,URINE NEGATIVE (NEGATIVE); NITRITE, URINE NEGATIVE (NEGATIVE); PROTEIN,URINE NEGATIVE (NEGATIVE); UGLUCOSE NEGATIVE (NEGATIVE); UROBILINOGEN,URINE 0.2 EU/dL (0.2)
[2022-01-10 08:16] LABS: BASOPHILS % (AUTO) 0.5 % (0.0-2.0); EOSINOPHILS % (AUTO) 3.6 % (0.0-6.0); HEMATOCRIT 45 % (39-51); HEMOGLOBIN 15.4 g/dL (13.5-17.5); LYMPHOCYTES # (AUTO) 2.2 K/uL (0.8-4.8); LYMPHOCYTES % (AUTO) 40.3 % (20.0-44.0); MEAN CORPUSCULAR HGB CONC 34 g/dl (31.0-36.0); MEAN CORPUSCULAR VOLUME 95 fL (80-96); MONOCYTES # (AUTO) 0.5 K/uL (0.1-1.30); MONOCYTES % (AUTO) 8.4 % (2.0-12.0); NEUTROPHILS # (AUTO) 2.6 K/uL (1.8-8.9); NEUTROPHILS % (AUTO) 47.2 % (43.0-81.0); PLATELET COUNT (AUTO) 202 K/uL (150-450); RED BLOOD CELL COUNT(AUTO) 4.76 MIL/uL (4.5-6.0); WHITE BLOOD COUNT (AUTO) 5.5 K/uL (4.3-11.0)
[2022-01-10 08:40] LABS: BACTERIA,URINE None seen /HPF (None Seen); SQUAMOUS EPITHELIAL CELL,UR 0-2 /HPF (None Seen); WBC,URINE 0-2 /HPF (0-3)
[2022-01-10 08:43] LABS: ALANINE AMINOTRANSFERASE 54 U/L (12-78); ALBUMIN 4.1 g/dL (3.4-5.0); ALCOHOL, BLOOD < 3 mg/dL (0-0); ALKALINE PHOSPHATASE 124 U/L (46-116); ASPARTATE AMINOTRANSFERASE 23 U/L (15-37); BILIRUBIN,DIRECT 0.1 mg/dL (0.0-0.2); BILIRUBIN,TOTAL 0.4 mg/dL (0.2-1.0); CALCIUM, SERUM 9.5 mg/dL (8.5-10.1); CARBON DIOXIDE 30 mmol/L (21-32); CHLORIDE 106 mmol/L (98-107); CREATININE 1.1 mg/dL (0.6-1.3); GLUCOSE 154 mg/dL (74-106); POTASSIUM 4.1 mmol/L (3.5-5.1); SODIUM SERUM 142 mmol/L (136-145); TOTAL PROTEIN, SERUM 8.1 g/dL (6.4-8.2); UREA NITROGEN, BLOOD 13 mg/dL (7-18)
[2022-01-10 08:47] LABS: ACETAMINOPHEN < 10 ug/ml (10-30)
--- NOTE | 2022-01-10 09:55 | NUR ---
FAXED CLINICALS TO [facility].
--- NOTE | 2022-01-10 10:30 | NUR ---
Medically cleared for [facility]. Await picker / packer
--- NOTE | 2022-01-10 12:30 | NUR ---
Luis from [facility] here to pick pt up
[2022-01-10 13:24] VITALS: BP 155/80
== END 2022-01-10 13:25 ==
LOC: ER 07:46
DX: F32.A Depression, unspecified (principal); F20.9 Schizophrenia, unspecified; Z59.01 Sheltered homelessness; Z20.822 Contact with and (suspected) exposure to COVID-19
CPT/HCPCS: 36415; 80048-TC; 80076-TC; 81001; 85025-TC; C9803; G0480